=== PATIENT | female | born 1965 | race Caucasian/White ===

== ENCOUNTER 2020-07-11 16:24 | Emergency (ER) | payer OTHER, SELFPAY ==
[2020-07-11 20:01] LABS: Absolute Lymphocytes (CBC) 1.5 K/uL (0.7-4.9); Hematocrit 39.1 % (36.0-45.0); MPV 7.7 fL (7.6-11.3); RBC Red Blood Cell Count 4.51 M/uL (3.86-4.86)
[2020-07-11 20:19] LABS: Bilirubin Total 0.3 mg/dL (0.2-1.0); Potassium 3.6 mmol/L (3.5-5.1); Protein, Total 7.9 g/dL (6.4-8.2)
--- NOTE | 2020-07-11 20:45 | ER ---
Nurse's Notes [facility] Name: Ana Luisa Rojas Age: 54 yrs Sex: Female : 1965 Arrival Date: 07/11/2020 Time: 16:27 Bed 25 Private MD: Diagnosis: Cellulitis of left lower limb Presentation: 07/11 16:44 Chief complaint: Left lower leg swelling and redness x 5 days. Coronavirus screen: At this time, the client does not indicate any symptoms associated with coronavirus-19. Ebola Screen: No symptoms or risks identified at this time. Initial Sepsis Screen: Does the patient meet any 2 criteria? HR > 90 bpm. No. Patient's initial sepsis screen is negative. Does the patient have a suspected source of infection? No. Patient's initial sepsis screen is negative. Risk Assessment: Do you want to hurt yourself or someone else? Patient reports no desire to harm self or others. Onset of symptoms was July 06, 2020. 16:44 Method Of Arrival: Ambulatory 16:44 Acuity: BRODY 3 hb Triage Assessment: 21:09 General: Appears. ll1 21:09 General: Behavior is calm, cooperative, appropriate for age. 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 - Social history:: Smoking status: Patient reports the use of cigarette tobacco products, smokes two packs cigarettes per day. Screenin:00 Abuse screen: Denies threats or abuse. Nutritional screening: No deficits noted. ll1 Tuberculosis screening: No symptoms or risk factors identified. Fall Risk Gait- Weak (10 pts.). Total Ochoa Fall Scale indicates No Risk (0-24 pts). Assessment: 17:46 Reassessment: Pt updated on delay in being seen by a provider. Pt does not appear to be dm5 upset at this time and states that she understands. 19:35 General: Appears in no apparent distress. Behavior is calm, cooperative. Pain: ll1 Complains of pain in LLE Quality of pain is described as aching, Is continuous. Derm: redness to skin to LLE. No drainage at this time. She states it "weeps" at times. No fever. Reports redness to skin of LLE. Musculoskeletal: Circulation, motion, and sensation intact. Capillary refill < 3 seconds, Range of motion: intact in all extremities, Tenderness present in LLE Reports pain in LLE. Injury Description: no known injury. 19:45 Reassessment: Lab at bedside. lp1 Vital Signs: 16:44 BP 149 / 95; Pulse 102; Resp 20; Temp 99.6(TE); Pulse Ox 96% on R/A; Pain 6/10; hb ED Course: 16:27 Patient arrived in ED. mr 16:44 Triage completed. hb 16:45 Arm band placed on. hb 19:35 Nadir Anne MD is Attending Physician. tw4 19:[address] Anne in triage. ll1 19:40 Cuauhtemoc Michael PA is PHCP. [facility] 19:56 Cecilia Loredo, RN is Primary Nurse. lp1 20:00 Patient has correct armband on for positive identification. Bed in low position. Call ll1 light in reach. Side rails up X 1. Cardiac monitoring not applicable on this patient. 20:51 Extremity Venous Uni Ltd US In Process Unspecified. EDMS 20:52 No provider procedures requiring assistance completed. Patient did not have IV access ll1 during this emergency room visit. 20:58 Ultrasound completed. Patient tolerated well. Notified ACCOUNT INFORMATION CLERK/CARLOS aj. sg3 Administered Medications: No medications were administered Outcome: 20:45 Discharge ordered by . [facility] 20:51 Patient left the ED. aj1 20:51 Discharged to home ambulatory. ll1 20:51 Condition: stable 20:51 Discharge instructions given to patient, Instructed on discharge instructions, follow up and referral plans. medication usage, Demonstrated understanding of instructions, follow-up care, medications, Prescriptions given X 2. Signatures: Dispatcher [employer] EDMS Steffany Conrad RN RN aj1 Patricia Gaspar RN BRENT dm5 Cuauhtemoc Michael PA PA [facility] Sarah Hollis mr Cecilia Loredo, BRENT RN lp1 Shirin Hanson RN RN Ana Paula Hewitt sg3 Nadir Anne MD MD 4 Ophelia Solomon RN RN 1
--- NOTE | 2020-07-11 20:45 | EDPHYS ---
Physician Documentation [facility] Name: Ana Luisa Rojas Age: 54 yrs Sex: Female : 1965 Arrival Date: 07/11/2020 Time: 16:27 Bed 25 Private MD: ED Physician Nadir Anne HPI: 07/11 20:39 This 54 yrs old Female presents to ER via Ambulatory with complaints of Leg jmm Swelling. 20:39 The patient presents with pain, that is acute. Onset: The symptoms/episode jmm began/occurred gradually, 5 day(s) ago. Modifying factors: The symptoms are alleviated by nothing. the symptoms are aggravated by nothing. Associated signs and symptoms: Pertinent positives: swelling. This is a 54 year old female with no chronic medical conditions that presents to the ED with complaints of left lower leg pain beginning approx 5 days ago with swelling. Denies fever. Denies chest pain or shortness of breath. 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 - Social history:: Smoking status: Patient reports the use of cigarette tobacco products, smokes two packs cigarettes per day. ROS: 20:39 Constitutional: Negative for fever, chills, and weight loss, Cardiovascular: Negative jmm for chest pain, palpitations, and edema, Respiratory: Negative for shortness of breath, cough, wheezing, and pleuritic chest pain. 20:39 MS/extremity: Positive for swelling. 20:39 All other systems are negative. Exam: 20:39 Constitutional: This is a well developed, well nourished patient who is awake, alert, jmm and in no acute distress. Head/Face: atraumatic. Eyes: EOMI, no conjunctival erythema appreciated ENT: Moist Mucus Membranes Neck: Trachea midline, Supple Chest/axilla: Normal chest wall appearance and motion. Cardiovascular: Regular rate and rhythm. No edema appreciated Respiratory: Normal respirations, no respiratory distress appreciated Abdomen/GI: Non distended, soft Back: Normal ROM 20:39 Musculoskeletal/extremity: edema noted to the left lower leg, full dorsalis pulse, compartments are soft, NVI. 20:39 Skin: erythema noted to the left lower leg, mildly ttp. 20:39 Neuro: Orientation: is normal, Mentation: is normal, Memory: is normal. 20:39 Psych: Behavior/mood is pleasant, cooperative. Vital Signs: 16:44 BP 149 / 95; Pulse 102; Resp 20; Temp 99.6(TE); Pulse Ox 96% on R/A; Pain 6/10; hb MDM: 19:47 Patient medically screened. [facility] 20:43 Data reviewed: vital signs, nurses notes. Counseling: I had a detailed discussion with maki the patient and/or guardian regarding: the historical points, exam findings, and any diagnostic results supporting the discharge/admit diagnosis, lab results, radiology results, the need for outpatient follow up, to return to the emergency department if symptoms worsen or persist or if there are any questions or concerns that arise at home. ED course: Patient is alert and non toxic in appearance in the ED. US is negative. Labs unremarkable. Differential would include cellulitis, lymphadema. Patient is prescribed oral antibiotics and otherwise given strict return precautions. Patient understood and agrees with the plan of care. . 07/11 19:38 Order name: CBC with Diff; Complete Time: 20:18 tw4 07/11 19:38 Order name: CMP; Complete Time: 20:20 tw4 07/11 19:38 Order name: Extremity Venous Uni Ltd tw4 Administered Medications: No medications were administered Disposition: 07/12 07:02 Co-signature as Attending Physician, Nadir Anne MD I agree with the assessment and tw4 plan of care. Disposition: 07/11/20 20:45 Discharged to Home. Impression: Cellulitis of left lower limb. - Condition is Stable. - Discharge Instructions: Cellulitis, Adult. - Prescriptions for Augmentin 875- 125 mg Oral Tablet - take 1 tablet by ORAL route every 12 hours for 10 days; 20 tablet. Bactrim DS 800- 160 mg Oral Tablet - take 1 tablet by ORAL route every 12 hours for 10 days; 20 tablet. - Medication Reconciliation Form, Thank You Letter, Antibiotic Education, Prescription Opioid Use form. - Follow up: Private Physician; When: 2 - 3 days; Reason: Recheck today's complaints, Continuance of care, Re-evaluation by your physician. Signatures: Dispatcher [facility] EDSteffany Veronica RN RN aj1 Cuauhtemoc Michael PA PA jmm Baxter, Heather, RN RN Nadir Anne MD MD tw4 Corrections: (The following items were deleted from the chart) 07/11 20:51 20:45 07/11/2020 20:45 Discharged to Home. Impression: Cellulitis of left lower limb. aj1 Condition is Stable. Forms are Medication Reconciliation Form, Thank You Letter, Antibiotic Education, Prescription Opioid Use. Follow up: Private Physician; When: 2 - 3 days; Reason: Recheck today's complaints, Continuance of care, Re-evaluation by your physician. maki
[2020-07-11 21:18] VITALS: BP 149/95; TEMP 99.6; O2SAT 96
--- NOTE | 2020-07-11 21:35 | RAD REPORT ---
EXAM DESCRIPTION: US - Extremity Venous Uni Ltd - 07/11/2020 8:51 pm CLINICAL HISTORY: Pain;Swelling Leg swelling and edema. COMPARISON: No comparisons FINDINGS: Left lower extremity venous system was interrogated with Doppler technique. Normal flow, c ompressibility and augmentation was noted. There is no DVT present. IMPRESSION: No evidence of left lower extremity deep venous thrombosis.
== END 2020-07-11 20:51 | disposition home or self-care (01) ==
LOC: ER 16:24
DX: L03.116 Cellulitis of left lower limb (principal); F17.210 Nicotine dependence, cigarettes, uncomplicated; Z88.5 Allergy status to narcotic agent
CPT/HCPCS: 36415; 80053; 85025; 93971; 99283

== ENCOUNTER 2022-08-24 08:48 | Day surgery (SDC) | payer OTHER ==
[2022-08-18 12:58] LABS: Absolute Lymphocytes (CBC) 1.6 K/uL (0.7-4.9); Hematocrit 42.1 % (36.0-45.0); Lymphocytes % 19.2 % (15.3-44.8); MCV 84.2 fL (80-100); MPV 7.9 fL (7.6-11.3)
--- NOTE | 2022-08-18 12:58 | RAD REPORT ---
EXAM DESCRIPTION: RAD - Chest Single View - 08/18/2022 12:46 pm CLINICAL HISTORY: PRE-OP Chest pain. COMPARISON: CHEST SINGLE VIEW dated 09/01/2013; CHEST PA AND LAT 2 VIEW dated 06/16/2009; CHEST SING LE VIEW dated 06/16/2009; CHEST SINGLE VIEW dated 06/11/2009 FINDINGS: Portable technique limits examination quality. Mild to moderate bilateral pulmonary opacities which may represent pulmonary edema. The heart is mild ly enlarged in size. No displaced fractures. IMPRESSION: Mild CHF.
[2022-08-18 13:00] LABS: Protime INR 1.07
[2022-08-18 13:41] LABS: Albumin 3.1 g/dL (3.4-5.0); Bilirubin Total 0.2 mg/dL (0.2-1.0); Potassium 3.7 mmol/L (3.5-5.1); Protein, Total 8.3 g/dL (6.4-8.2)
--- NOTE | 2022-08-22 15:21 | EKG ---
Test Date: 2022-08-18 Test Time: 13:12:41 Crystal Flat Grinder: PAM MEASUREMENT RESULTS: Intervals: Rate: 70 OK: 168 QRSD: 110 QT: 390 QTc: 421 Cresco: P: 53 OK: 168 QRS: -1 T: 34 INTERPRETIVE STATEMENTS: Normal sinus rhythm Incomplete right bundle branch block Borderline ECG No previous ECG available for comparison Electronically Signed On 08-22-22 15:17:14 SUPERVISOR STERILE PROCESSING by Allan Patel
[~2022-08-24 08:48] MED LIST: CEFTRIAXONE 1,000 MG in NA CHLORIDE 0.9% 50 ML IVPB ONE
[2022-08-24] MEDS ORDERED: CEFTRIAXONE 1000 MG/VIAL ONE (09:16)
[2022-08-24] MEDS ORDERED: NA CHLORIDE 0.9% 1,000 ML ONE (09:16)
[2022-08-24] MEDS ORDERED: NA CHLORIDE 0.9% 50 ML IV ONE (09:22)
[2022-08-24] MEDS ORDERED: GEMCITABINE HCL 26.3 ML IVPB ONE (09:45)
[2022-08-24] MEDS ORDERED: propofoL 200 MG/20 ML VIAL IV ONE (11:48)
[2022-08-24] MEDS ORDERED: FENTANYL CITR 100 MCG/2 ML ONE (11:48)
[2022-08-24] MEDS ORDERED: MIDAZOLAM HCL 2 MG/2 ML INJ ONE (11:48)
[2022-08-24] MEDS ORDERED: dexAMETHasone 10 MG/ML VIAL ONE (11:49)
[2022-08-24] MEDS ORDERED: LIDOCAINE 1% MPF 5 ML VIAL ONE (11:49)
[2022-08-24] MEDS ORDERED: ONDANSETRON 4 MG/2 ML VIAL ONE (11:49)
[2022-08-24] MEDS ORDERED: ROCURONIUM 50 MG/5 ML VIAL IV ONE (11:49)
[2022-08-24] MEDS ORDERED: OPIUM/BELLADONNA SUPPOS (30-16.2 MG) PR ONE (12:46)
[2022-08-24] MEDS ORDERED: EPHEDRINE SULF 50 MG/ML VIAL ONE (12:47)
[2022-08-24] MEDS ORDERED: SUGAMMADEX SODIUM 200 MG/2 ML VIAL IV ONE (12:59)
[2022-08-24] MEDS ORDERED: CODEINE 30MG/APAP 300MG TAB PO PRN (13:27)
[2022-08-24] MEDS ORDERED: NA CHLORIDE 0.9% 0 ML ONE (14:16)
--- NOTE | 2022-08-24 14:19 | OP ---
Surgeon: LEI JACKMAN Preoperative Diagnosis: Multifocal urothelial carcinoma of the bladder. Postoperative Diagnoses: 1.Multifocal urothelial carcinoma of the bladder. 2.Dominant tumor approximately 3 cm of left lateral wall posteriorly. Principal Procedures: 1.Transurethral resection of the bladder tumor. 2.Instillation of intravesical gemcitabine 2 g and 50 cc normal saline. Indication For Procedure: Ms. Rojas is a 57-year-old woman with a history of DVT, on Xarelto as well as asthma/COPD, who presented with gross hematuria associated with a bladder mass suspected on CT. She underwent cystoscopy 08/10/2022 revealing multifocal urothelial malignancy in the region of the b ladder neck with a large focus in the right lateral posterior wall underlying the gross hematuria. S he had undergone a CT scan with contrast at [place] that was not done with delayed phase imaging, but s aw no upper tract renal malignancy. She also had no lymphadenopathy or bone lesions noted on CT scan . Procedure In Detail: The patient was consented in the preoperative holding area before being transfe rred to the operative suite where general anesthesia was induced. She was given ceftriaxone 1 g IV a ntimicrobial prophylaxis and pneumo boots were provided for DVT prophylaxis. Of note, she was given Augmentin which she was started on yesterday given an asymptomatic UTI noted on preoperative urine cu lture evaluation. The patient was then transferred to the operative suite where general anesthesia w as induced and pneumo boots were provided for DVT prophylaxis. She was placed in the lithotomy posit ion, padded and secured to the table appropriately and her genitalia were prepped with Hibiclens befo re being draped in standard fashion. The case was begun using urethral sounds to dilate the meatus t o 30-Bahamian. Then, I passed a 26-Bahamian bipolar resectoscope with a visual obturator via the urethra into her bladder with ease. I decompressed her bladder fluid and urine before switching to a thin r esectoscope loop and identified the large tumor, which was approximately 3, maybe 4 cm, and papillary in appearance with a base that ended up being approximately 2 cm in diameter. I then began by resec ting the frondular growths of the tumor and using the Ellik to remove them throughout the resection u ntil I could get near the base of the tumor, which I was able to resect as a deeper base dissection o f the tumor. Once the majority of the tumor had been resected off the surface of the bladder, I then switched to cold cup biopsy forceps and took biopsies of the base of the tumor to ensure good muscul ar sampling. I also throughout the resection removed the smaller multifocal tumor seen at the bladde r neck both on the left at around the 4 o'clock position and on the right at the 9 o'clock position. The remainder of the bladder was otherwise free of mucosal lesion. In the end, after fulguration, t he bladder surface was completely hemostatic and all tumor tissue had been Ellik evacuated from withi n the bladder. With her bladder completely decompressed, I confirmed she was still hemostatic before filling her bladder and passing an 18-Bahamian catheter in. After bladder was decompressed, I then re trograde instilled 2 g of gemcitabine and 50 cc normal saline with ease. The catheter was clamped an d connected to a leg bag. Her genitalia were draped using blue towels and impermeable fluid drapery, and she was taken out of the lithotomy position. She was then awakened from general anesthesia, tra nsferred to a stretcher, before being transferred to the recovery room in good condition. Complications: None. Discharge Disposition: We will keep the chemotherapy for 60, targeting 90 minutes of therapy. Of no te, she was given B and O suppository at the end of the procedure. Her bladder will then be decompre ssed, the catheter may be removed. She will then be given a voiding trial, as long as she is able to void successfully and with ease, she will be discharged home without a catheter and should follow up in the Urology Clinic within 10-14 days to discuss the results of pathology and determine next steps . She will require upper tract urographic phase imaging, which may be done if she requires restaging TURBT by performing retrograde studies. If restaging TURBT is not indicated, she will get a CT urogr am performed. WR/MODL Voice ID: [id number] Report ID: [id number]
[2022-08-24] MEDS ORDERED: NA CHLORIDE 0.9% 500 ML ONE (14:20)
[2022-08-24 15:16] VITALS: BP 111/50; TEMP 98.1; O2SAT 96
== END 2022-08-24 16:12 | disposition home or self-care (01) ==
LOC: OR 08:48
PROVIDERS: ATTEND Urology
PROC: 3E0K705 Introduction of Other Antineoplastic into Genitourinary Tract, Via Natural or Artificial Opening (ICD-10-PCS; 2022-08-24)
PROC: 0TBB8ZX Excision of Bladder, Via Natural or Artificial Opening Endoscopic, Diagnostic (ICD-10-PCS; principal; 2022-08-24 10:30)
DX: D09.0 Carcinoma in situ of bladder (principal); J45.909 Unspecified asthma, uncomplicated; J44.9 Chronic obstructive pulmonary disease, unspecified; Z86.718 Personal history of other venous thrombosis and embolism; Z79.01 Long term (current) use of anticoagulants
CPT/HCPCS: 93005; 87088; 85025; 87086; 36415; 85610; 82947 ×2; 88305; 88307; 87077; 87186; 80053; 71045; 52235; 51720; J2704; J2001; J2250; J3010; J1100; J9201; J7040; J7030; J2405

== ENCOUNTER 2022-09-07 06:04 | Emergency (ER) | payer OTHER ==
[2022-09-07 06:49] LABS: Absolute Lymphocytes (CBC) 1.4 K/uL (0.7-4.9); Hematocrit 41.3 % (36.0-45.0); Lymphocytes % 18.7 % (15.3-44.8); MPV 7.8 fL (7.6-11.3); RBC Red Blood Cell Count 4.91 M/uL (3.86-4.86)
[2022-09-07 07:08] LABS: Bilirubin Total 0.3 mg/dL (0.2-1.0); Potassium 3.7 mmol/L (3.5-5.1); Protein, Total 8.1 g/dL (6.4-8.2)
[2022-09-07 07:24] LABS: Urine Bacteria None Seen /HPF (<20); Urine RBC >50 /HPF (None Seen)
--- NOTE | 2022-09-07 08:04 | RAD REPORT ---
EXAM DESCRIPTION: CTAbdomen Pelvis W Contrast - 09/07/2022 7:36 am CLINICAL HISTORY: Post op bleeding COMPARISON: No comparisons TECHNIQUE: CT of the abdomen and pelvis was performed with IV contrast. All CT scans are performed using dose optimization technique as appropriate and may include automated exposure control or mA/KV adjustment according to patient size. FINDINGS: Lower chest: No acute abnormality. Liver: Hepatic steatosis. Too small to characterize liver lesions which are likely benign. Biliary: No biliary ductal dilatation. Stomach: No significant focal abnormality. Duodenum: No significant focal abnormality. Pancreas: No significant abnormality. Spleen: No significant abnormality. Adrenal: No suspicious lesions. Kidney/ureter: No hydronephrosis. No renal calculi. Left renal cyst. Retroperitoneum: No retroperitoneal adenopathy. Vascular: No aneurysm. Bowel: No significant focal abnormality. Peritoneum: No ascites or free air. Bladder: Dependent hyperdensity in the bladder likely hemorrhage. Reproductive: No adnexal masses. Hysterectomy. Bones: No acute fracture. Other: n/a IMPRESSION: Dependent hypoattenuation in the lumen of the bladder likely reflecting small volume of hemorrhage. No evidence of bladder leak. No hydronephrosis.
--- NOTE | 2022-09-07 08:07 | RAD REPORT ---
EXAM DESCRIPTION: US - Renal Ultrasound-Complete - 09/07/2022 7:55 am CLINICAL HISTORY: hematuria s/p surgery COMPARISON: No comparisons FINDINGS: Both kidneys are normal in size, shape and echotexture. The right kidney measures 11 cm. No hydronephrosis, focal mass or perinephric fluid. The left kidney measures 12.1 cm. No hydronephrosis, focal mass or perinephric fluid. IMPRESSION: Unremarkable renal sonogram. No hydronephrosis.
--- NOTE | 2022-09-07 08:07 | RAD REPORT ---
EXAM DESCRIPTION: US - Urinary Bladder - 09/07/2022 7:55 am CLINICAL HISTORY: HEMATURIA COMPARISON: No comparisons FINDINGS: Ultrasound of the bladder was obtained. Layering echogenic contents present within the bladder lumen. No flow identified. At the patient's si te of pain in the left lower quadrant, no focal abnormality identified. IMPRESSION: Findings likely representing layering hemorrhage within the bladder lumen. No sonographi c abnormality identified at the patient's site of pain in the left lower quadrant.
--- NOTE | 2022-09-07 08:37 | ER ---
Nurse's Notes [facility] Name: Ana Luisa Rojas Age: 57 yrs Sex: Female : 1965 Arrival Date: 09/07/2022 Time: 06:07 Bed 8 Private MD: Diagnosis: Gross hematuria Presentation: 09/07 06:12 Chief complaint: Patient states: "I had surgery on the here by Dr. Castillo for tw5 bladder cancer. Everything has been great until this morning when I woke up covered in blood.". Coronavirus screen: Vaccine status: Patient reports being unvaccinated. Risk Assessment: Do you want to hurt yourself or someone else? Patient reports no desire to harm self or others. Onset of symptoms was September 07, 2022. 06:12 Method Of Arrival: Ambulatory tw5 06:12 Acuity: BRODY 3 tw5 07:56 Ebola Screen: No symptoms or risks identified at this time. Initial Sepsis Screen: Does ph the patient meet any 2 criteria? No. Patient's initial sepsis screen is negative. Does the patient have a suspected source of infection? No. Patient's initial sepsis screen is negative. Triage Assessment: 06:15 General: Appears in no apparent distress. obese, Behavior is calm, cooperative, tw5 appropriate for age. Historical: - Allergies: 06:15 Codeine; tw5 - PMHx: 06:15 COPD; CHF; Diabetes mellitus; Anxiety; Depressive disorder; tw5 - PSHx: 06:15 Total abdominal hysterectomy; Ligation of fallopian tube; Appendectomy; tw5 - Immunization history:: Flu vaccine is not up to date. - Social history:: Smoking status: Patient reports the use of cigarette tobacco products, smokes two packs cigarettes per day. Screenin:39 [facility] ED Fall Risk Assessment (Adult) History of falling in the last 3 months, ld1 including since admission No falls in past 3 months (0 pts). Abuse screen: Denies threats or abuse. Denies injuries from another. Nutritional screening: No deficits noted. Tuberculosis screening: No symptoms or risk factors identified. Assessment: 07:39 General: Appears in no apparent distress. comfortable, Behavior is calm, cooperative, ld1 appropriate for age. Pain: Complains of pain in left lower quadrant Pain does not radiate. Neuro: Level of Consciousness is awake, alert, obeys commands, Oriented to person, place, time, situation. Cardiovascular: Capillary refill < 3 seconds Patient's skin is warm and dry. Respiratory: Airway is patent Respiratory effort is even, unlabored. GI: Abdomen is flat, non-distended. : No signs and/or symptoms were reported regarding the genitourinary system. EENT: No signs and/or symptoms were reported regarding the EENT system. Derm: No signs and/or symptoms reported regarding the dermatologic system. Musculoskeletal: No signs and/or symptoms reported regarding the musculoskeletal system. 07:55 Reassessment: Patient appears in no apparent distress at this time. Patient and/or ph family updated on plan of care and expected duration. Pain level reassessed. Patient is alert, oriented x 3, equal unlabored respirations, skin warm/dry/pink. Pt ambulated to restroom w/ steady gait. 08:24 Reassessment: Notified by burner technician that pt stated she was going outside to go smoke, aa5 unable to locate pt at this time, IV remains in place, [place] [employer] was notified and they will look for pt. . 08:26 Reassessment: Pt returned to ER at this time. [place] [employer] was notified pt returned aa5 to ER. . 08:33 Reassessment: Bladder scanner completed - 66ml left in bladder post void. ld1 08:44 Reassessment: Patient appears in no apparent distress at this time. Patient and/or ld1 family updated on plan of care and expected duration. Pain level reassessed. Patient is alert, oriented x 3, equal unlabored respirations, skin warm/dry/pink. Patient denies pain at this time. Vital Signs: 06:23 BP 120 / 84; Pulse 81; Resp 19; Temp 97.9; Pulse Ox 96% on R/A; Weight 124.74 kg; kd3 Height 5 ft. 6 in. (167.64 cm); 08:44 BP 118 / 83; Pulse 78; Resp 18; Pulse Ox 97% on R/A; Pain 0/10; ld1 06:23 Body Mass Index 44.39 (124.74 kg, 167.64 cm) kd3 ED Course: 06:07 Patient arrived in ED. ja2 06:14 Triage completed. tw5 06:16 Arm band placed on Patient placed in an exam room. tw5 06:22 Chavo, Traci, RN is Primary Nurse. kd3 06:47 CBC with Diff Sent. kd3 06:47 CMP Sent. kd3 06:47 Lipase Sent. kd3 06:47 Urine Microscopic Only Sent. kd3 06:48 Jaim[facility]-C [facility]. snw 06:48 Tony Singh DO is Attending Physician. snw 06:55 Type And Screen Sent. kd3 07:37 CT Abd/Pelvis - IV Contrast Only In Process Unspecified. EDMS 07:39 Patient has correct armband on for positive identification. Placed in gown. Bed in low ld1 position. Call light in reach. Side rails up X2. monitor technician on. Pulse ox on. NIBP on. Door closed. Noise minimized. Warm blanket given. 07:39 No provider procedures requiring assistance completed. ld1 07:57 Renal Ultrasound-Complete In Process Unspecified. EDMS 07:57 Urinary Bladder In Process Unspecified. EDMS 08:10 T\\T\\S collected, blood band applied to patient. jw7 08:34 Tyrone Castillo MD is Referral Physician. snw 08:45 IV discontinued, intact, bleeding controlled, No redness/swelling at site. ld1 Administered Medications: No medications were administered Medication: 07:56 VIS not applicable for this client. ph Outcome: 08:36 Discharge ordered by . snw 08:44 Discharged to home ambulatory, with family. ld1 08:44 Condition: stable 08:44 Discharge instructions given to patient, family, Instructed on discharge instructions, follow up and referral plans. Demonstrated understanding of instructions, follow-up care. 08:45 Patient left the ED. ld1 Signatures: Dispatcher [employer] EDMS Jaimie Rocha FNP-C CASE REPAIRER-Csnw Niurka Hernandez RN RN aa5 Orquidea Katz RN RN Afsaneh Umanzor, BRENT RN ld1 Gina Rubalcava Tiffany tw5 Traci Tony, RN RN kd3 Elisabeth Colby jw7 Corrections: (The following items were deleted from the chart) 06:42 06:23 BP 120 / 84; Pulse 19bpm; Resp 81bpm; Pulse Ox 96% RA; Temp 97.9F; 124.74 kg; kd3 Height 5 ft. 6 in.; BMI: 44.3; kd3 08:28 08:26 Reassessment: Pt returned to ER at this time. . aa5 aa5
--- NOTE | 2022-09-07 08:37 | EDPHYS ---
Physician Documentation [facility] Name: Ana Luisa Rojas Age: 57 yrs Sex: Female : 1965 Arrival Date: 09/07/2022 Time: 06:07 Bed 8 Private MD: ED Physician Tony Singh HPI: 09/07 07:16 This 57 yrs old Female presents to ER via Ambulatory with complaints of Post Surgical snw Bleeding. 07:16 The patient presents with urinary symptoms, hematuria. Onset: The symptoms/episode snw began/occurred suddenly, this morning. Modifying factors: The symptoms are alleviated by nothing. Associated signs and symptoms: Pertinent positives: hematuria. Severity of symptoms: At their worst the symptoms were mild. The patient has not experienced similar symptoms in the past. Pt had cystoscopy and removal of bladder mass about two weeks ago. No complications or complaints until this am. Pt awoke saturated with blood. Historical: - Allergies: 06:15 Codeine; tw5 - PMHx: 06:15 COPD; CHF; Diabetes mellitus; Anxiety; Depressive disorder; tw5 - PSHx: 06:15 Total abdominal hysterectomy; Ligation of fallopian tube; Appendectomy; tw5 - Immunization history:: Flu vaccine is not up to date. - Social history:: Smoking status: Patient reports the use of cigarette tobacco products, smokes two packs cigarettes per day. ROS: 07:15 Constitutional: Negative for fever, chills, and weight loss, Eyes: Negative for injury, snw pain, redness, and discharge, ENT: Negative for injury, pain, and discharge, Neck: Negative for injury, pain, and swelling, Cardiovascular: Negative for chest pain, palpitations, and edema, Respiratory: Negative for shortness of breath, cough, wheezing, and pleuritic chest pain, Abdomen/GI: Negative for abdominal pain, nausea, vomiting, diarrhea, and constipation, Back: Negative for injury and pain, : Negative for injury, bleeding, discharge, and swelling, MS/Extremity: Negative for injury and deformity, Skin: Negative for injury, rash, and discoloration, Neuro: Negative for headache, weakness, numbness, tingling, and seizure, Psych: Negative for depression, anxiety, suicide ideation, homicidal ideation, and hallucinations. Exam: 07:15 Constitutional: This is a well developed, well nourished patient who is awake, alert, snw and in no acute distress. Head/Face: Normocephalic, atraumatic. Eyes: Pupils equal round and reactive to light, extra-ocular motions intact. Lids and lashes normal. Conjunctiva and sclera are non-icteric and not injected. Cornea within normal limits. Periorbital areas with no swelling, redness, or edema. ENT: Nares patent. No nasal discharge, no septal abnormalities noted. Tympanic membranes are normal and external auditory canals are clear. Oropharynx with no redness, swelling, or masses, exudates, or evidence of obstruction, uvula midline. Mucous membranes moist. Neck: Trachea midline, no thyromegaly or masses palpated, and no cervical lymphadenopathy. Supple, full range of motion without nuchal rigidity, or vertebral point tenderness. No Meningismus. Chest/axilla: Normal chest wall appearance and motion. Nontender with no deformity. No lesions are appreciated. Cardiovascular: Regular rate and rhythm with a normal S1 and S2. No gallops, murmurs, or rubs. Normal PMI, no JVD. No pulse deficits. Respiratory: Lungs have equal breath sounds bilaterally, clear to auscultation and percussion. No rales, rhonchi or wheezes noted. No increased work of breathing, no retractions or nasal flaring. 07:15 Back: No spinal tenderness. No costovertebral tenderness. Full range of motion. Skin: Warm, dry with normal turgor. Normal color with no rashes, no lesions, and no evidence of cellulitis. MS/ Extremity: Pulses equal, no cyanosis. Neurovascular intact. Full, normal range of motion. Neuro: Awake and alert, GCS 15, oriented to person, place, time, and situation. Cranial nerves II-XII grossly intact. Motor strength 5/5 in all extremities. Sensory grossly intact. Cerebellar exam normal. Normal gait. Psych: Awake, alert, with orientation to person, place and time. Behavior, mood, and affect are within normal limits. 07:15 Abdomen/GI: Inspection: abdomen appears normal, Bowel sounds: normal, Palpation: mild abdominal tenderness, in the left lower quadrant. Vital Signs: 06:23 BP 120 / 84; Pulse 81; Resp 19; Temp 97.9; Pulse Ox 96% on R/A; Weight 124.74 kg; kd3 Height 5 ft. 6 in. (167.64 cm); 08:44 BP 118 / 83; Pulse 78; Resp 18; Pulse Ox 97% on R/A; Pain 0/10; ld1 06:23 Body Mass Index 44.39 (124.74 kg, 167.64 cm) kd3 MDM: 06:51 Patient medically screened. snw 07:47 Differential diagnosis: Neoplasm urinary tract infection, hematoma/post-surgical snw bleeding. 08:14 Data reviewed: vital signs, nurses notes. Data interpreted: Pulse oximetry: on room air snw is 96 %. Interpretation: acceptable. Counseling: I had a detailed discussion with the patient and/or guardian regarding: the historical points, exam findings, and any diagnostic results supporting the discharge/admit diagnosis, the presence of at least one elevated blood pressure reading (>120/80) during this emergency department visit, lab results, radiology results. Physician consultation: Tyrone Castillo MD was called at 08:15, was contacted at 08:15, regarding patient's condition, outpatient follow-up, in 2-3 days, Dr. Castillo would like pt to f/u in office but would like post void residual scan to ensure adequate bladder emptying.. 08:33 ED course: post void residual 66ml. snw 08:37 ED course: Pt has appt with Dr. Castillo tomorrow. snw 09/07 06:27 Order name: CBC with Diff; Complete Time: 06:51 sp3 09/07 06:27 Order name: CMP; Complete Time: 07:15 sp3 09/07 06:27 Order name: Lipase; Complete Time: 07:15 sp3 09/07 06:27 Order name: Urine Microscopic Only; Complete Time: 07:26 sp3 09/07 06:27 Order name: CT Abd/Pelvis - IV Contrast Only; Complete Time: 08:07 sp3 09/07 06:27 Order name: IV Saline Lock; Complete Time: 06:38 sp3 09/07 06:27 Order name: Labs collected and sent; Complete Time: 06:47 sp3 09/07 06:27 Order name: Urine Dipstick-Ancillary (obtain specimen); Complete Time: 07:39 sp3 09/07 07:15 Order name: Labs - recollect needed: recollect type and screen year was not on label; bd Complete Time: 07:39 01/05 07:34 Order name: Renal Ultrasound-Complete; Complete Time: 08:10 EDMS 09/07 07:35 Order name: Urinary Bladder; Complete Time: 08:10 EDMS 09/07 08:17 Order name: Misc. Order: post void residual bladder scan; Complete Time: 08:32 snw Administered Medications: No medications were administered Disposition: 16:48 Co-signature as Attending Physician, Tony Singh DO I was immediately available on-site ms3 in the Emergency Department for consultation in the care of the patient. Disposition Summary: 09/07/22 08:36 Discharge Ordered Location: Home snw Condition: Stable snw Diagnosis - Gross hematuria snw Followup: snw - With: Emergency Department - When: As needed - Reason: Worsening of condition Followup: snw - With: Tyrone Castillo MD - When: 1 - 2 days - Reason: Recheck today's complaints, Continuance of care, Re-evaluation by your physician Discharge Instructions: - Discharge Summary Sheet snw - Hematuria, Adult snw Forms: - Medication Reconciliation Form snw - Thank You Letter snw - Antibiotic Education snw - Prescription Opioid Use snw Signatures: Dispatcher [employer] EDMS Sonia Tijerina Shelly, TEST ANALYST-C TEST ANALYST-Csnw Tony Singh DO DO ms3 Yun Heaton MD MD sp3 Loida Barreto tw5 Corrections: (The following items were deleted from the chart) 07:34 07:28 Pelvis Complete+US.RAD.BRZ ordered. EDMS EDMS
[2022-09-07 08:50] VITALS: TEMP 97.9
[2022-09-07 08:51] VITALS: BP 118/83; O2SAT 97
== END 2022-09-07 08:45 | disposition home or self-care (01) ==
LOC: ER 06:04
DX: R31.0 Gross hematuria (principal); Z98.890 Other specified postprocedural states; F17.210 Nicotine dependence, cigarettes, uncomplicated; Z88.5 Allergy status to narcotic agent; Z85.51 Personal history of malignant neoplasm of bladder
CPT/HCPCS: 85025; 36415; 86900; 86850; 86901; 81015; 83690; 80053; 74177; 76857; 76770; 99284; Q9967

== ENCOUNTER 2022-09-07 19:03 | Emergency (ER) | payer OTHER ==
[~2022-09-07 19:03] MED LIST changes: -CEFTRIAXONE 1,000 MG in NA CHLORIDE 0.9% 50 ML IVPB ONE; +NA CHLORIDE 0.9% 1,000 ML ONE
[2022-09-07] MEDS ORDERED: NA CHLORIDE 0.9% 1,000 ML ONE (20:03)
[2022-09-07 20:39] LABS: Protime INR 2.3
[2022-09-07 20:44] LABS: Potassium 3.7 mmol/L (3.5-5.1)
[2022-09-07 21:14] LABS: Absolute Lymphocytes (CBC) 1.6 K/uL (0.7-4.9); Hematocrit 37.4 % (36.0-45.0); MCV 84.3 fL (80-100); MPV 8.2 fL (7.6-11.3); RBC Red Blood Cell Count 4.44 M/uL (3.86-4.86)
[2022-09-07 22:54] LABS: Urine Bacteria Loaded /HPF (<20); Urine RBC >50 /HPF (None Seen)
[2022-09-07] MEDS ORDERED: CEFTRIAXONE 1000 MG/VIAL ONE (23:15)
--- NOTE | 2022-09-08 01:11 | ER ---
Nurse's Notes [facility] Name: Ana Luisa Rojas Age: 57 yrs Sex: Female : 1965 Arrival Date: 09/07/2022 Time: 19:13 Bed 13 Private MD: Diagnosis: Gross hematuria;Suprapubic pain;Bleeding from urethra Presentation: 09/07 19:17 Chief complaint: EMS states: "patient states that she had bladder cancer removal on em6 August 25, 2022 and today at 0400 she started bleeding bright red with clots. at 1600 she started having periumbilical and suprapubic pain. she's currently at a 3 pain. vitals have been stable. started a 20 G on the right AC and gave her 1000 mg of Tylenol IV.". Coronavirus screen: Client denies travel out of the [place] in the last 14 days. Ebola Screen: Patient negative for fever greater than or equal to 101.5 degrees Fahrenheit, and additional compatible Ebola Virus Disease symptoms. Initial Sepsis Screen: Does the patient meet any 2 criteria? No. Patient's initial sepsis screen is negative. Does the patient have a suspected source of infection? No. Patient's initial sepsis screen is negative. Risk Assessment: Do you want to hurt yourself or someone else? Patient reports no desire to harm self or others. Onset of symptoms was September 07, 2022. 19:17 Acuity: BRODY 3 em6 19:17 Method Of Arrival: EMS: [facility] em6 Historical: - Allergies: 19:23 Codeine; em6 - PMHx: 19:23 Anxiety; CHF; COPD; depressive disorder; diabetes mellitus; em6 - PSHx: 19:23 Appendectomy; Ligation of fallopian tube; Total abdominal hysterectomy; em6 - Immunization history:: Adult Immunizations up to date. - Social history:: Smoking status: Patient reports the use of cigarette tobacco products. Screenin:15 Abuse screen: Denies threats or abuse. Nutritional screening: No deficits noted. em6 Tuberculosis screening: No symptoms or risk factors identified. 19:23 [facility] ED Fall Risk Assessment (Adult) History of falling in the last 3 months, em6 including since admission No falls in past 3 months (0 pts) Confusion or Disorientation No (0 pts) Intoxicated or Sedated No (0 pts) Impaired Gait No (0 pts) Mobility Assist Device Used No (0 pt) Altered Elimination No (0 pt) Score/Fall Risk Level 0 - 2 = Low Risk Oriented to surroundings, Maintained a safe environment, Educated pt \\T\\ family on fall prevention, incl call for assistance when getting out of bed, Assessed \\T\\ reinforced patient's understanding of fall precautions, Provided non-skid footwear, Hourly rounding (assess needs \\T\\ fall precautionary measures) done, Used ambulatory aids as needed (educated on \\T\\ assisted with), Used gait belt as appropriate. Assessment: 19:15 General: Appears in no apparent distress. Behavior is cooperative. Pain: Complains of em6 pain in umbilical area and suprapubic area Pain does not radiate. Pain currently is 3 out of 10 on a pain scale. Quality of pain is described as pressure, sharp. Neuro: Level of Consciousness is awake, alert, obeys commands, Oriented to person, place, time, situation. Cardiovascular: Patient's skin is warm and dry. Respiratory: Airway is patent Respiratory effort is even, unlabored, Respiratory pattern is regular, symmetrical. GI: Abdomen is non-distended, Bowel sounds present X 4 quads. Abd is soft and non tender X 4 quads. : patient showed a picture of the bleeding. its bright red with clots Reports vaginal bleeding that is bright red. EENT: No signs and/or symptoms were reported regarding the EENT system. Derm: No signs and/or symptoms reported regarding the dermatologic system. Musculoskeletal: Circulation, motion, and sensation intact. Range of motion: intact in all extremities. 19:59 Reassessment: bladder scan 222 mL. em6 20:15 Reassessment: Patient appears in no apparent distress at this time. No changes from em6 previously documented assessment. Patient and/or family updated on plan of care and expected duration. Pain level reassessed. Patient is alert, oriented x 3, equal unlabored respirations, skin warm/dry/pink. 21:14 Reassessment: Patient appears in no apparent distress at this time. No changes from em6 previously documented assessment. Patient and/or family updated on plan of care and expected duration. Pain level reassessed. Patient is alert, oriented x 3, equal unlabored respirations, skin warm/dry/pink. 22:15 Reassessment: Patient appears in no apparent distress at this time. No changes from em6 previously documented assessment. Patient and/or family updated on plan of care and expected duration. Pain level reassessed. Patient is alert, oriented x 3, equal unlabored respirations, skin warm/dry/pink. 23:08 Reassessment: Patient is alert, oriented x 3, equal unlabored respirations, skin em6 warm/dry/pink. bladder irrigation performed. used 750 ml of NS. 450 ML of fluid return. 09/08 00:33 Reassessment: Patient appears in no apparent distress at this time. Patient is alert, aa9 oriented x 3, equal unlabored respirations, skin warm/dry/pink. Pain: Denies pain. Respiratory: Airway is patent Respiratory effort is even, unlabored. : Santiago in place to gravity drainage Urine is blood tinged. 01:30 Reassessment: Patient appears in no apparent distress at this time. DC Santiago Cath, aa9 collection bag contains 600 ml of bloody urine, pt tolerated well, IV DC'D, pt denies concerns. Vital Signs: 09/07 19:17 BP 96 / 83; Pulse 71; Resp 16; Temp 97.8; Pulse Ox 99% on R/A; Weight 124.74 kg; Height em6 5 ft. 6 in. (167.64 cm); Pain 3/10; 20:54 BP 111 / 63; Pulse 73; Resp 16; Pulse Ox 95% ; em6 22:43 BP 102 / 60; Pulse 79; Resp 16; Pulse Ox 97% on R/A; em6 23:30 BP 100 / 68; Pulse 70; Resp 16; Pulse Ox 92% on R/A; em6 09/08 00:35 Pulse 74; Resp 19 S; Pulse Ox 99% ; aa9 09/07 19:17 Body Mass Index 44.39 (124.74 kg, 167.64 cm) em6 ED Course: 09/07 19:13 Patient arrived in ED. em6 19:13 Lu Coon MD is Attending Physician. sd2 19:15 Maintain EMS IV. Dressing intact. Good blood return noted. Site clean \\T\\ dry. Gauge \\T\\ em 6 site: 20 rac. 19:23 Triage completed. em6 19:23 Arm band placed on. em6 19:23 Bed in low position. Call light in reach. Side rails up X 1. Pulse ox on. NIBP on. em6 Sitter at bedside. Warm blanket given. 19:35 Jolanta Leyva, RN is Primary Nurse. em6 19:59 Bladder scan completed. 255 mL. em6 20:24 Ptt, Activated Sent. em6 20:24 PT-INR Sent. em6 20:24 BMP Sent. em6 20:24 CBC with Diff Sent. em6 22:30 Santiago cath inserted, using sterile technique, 16 Fr., by ms, balloon inflated, to em6 gravity drainage, urine specimen collected. 22:37 Urine Microscopic Only Sent. em6 22:37 Urine Culture Sent. em6 09/08 00:30 Abdomen In Process Unspecified. EDMS 01:10 Tyrone Castillo MD is Referral Physician. sd2 01:30 No provider procedures requiring assistance completed. IV discontinued, intact, aa9 bleeding controlled, No redness/swelling at site. Pressure dressing applied. Administered Medications: 09/07 20:24 Drug: NS 0.9% 1000 ml Route: IV; Rate: 1 bolus; Site: right antecubital; em6 22:37 Follow up: Response: No adverse reaction; IV Status: Completed infusion; IV Intake: em6 1000ml 23:25 Drug: Rocephin (cefTRIAXone) 1 grams Route: IV; Rate: bolus; Site: right antecubital; em6 09/08 00:06 Follow up: Response: No adverse reaction; IV Status: Completed infusion; IV Intake: 40pdpp8 Medication: 09/07 23:26 VIS not applicable for this client. em6 Intake: 22:37 IV: 1000ml; Total: 1000ml. em6 09/08 00:06 IV: 10ml; Total: 1010ml. em6 Outcome: 01:11 Discharge ordered by . sd2 01:30 Discharged to home ambulatory, with family. aa9 01:30 Condition: stable 01:30 Discharge instructions given to patient, family, Instructed on discharge instructions, follow up and referral plans. Demonstrated understanding of instructions, follow-up care. 01:31 Patient left the ED. aa9 Signatures: [facility] Lu Coon MD MD sd2 Nohemy Arcos, RN RN aa9 Jolanta Leyva, RN RN em6 Corrections: (The following items were deleted from the chart) 09/07 21:15 21:14 Bladder scan completed. 255 mL em6 em6 23:26 23:08 Reassessment: bladder irrigation performed. used 750 ml of NS. 450 ML of fluid em6 return. em6
--- NOTE | 2022-09-08 01:11 | EDPHYS ---
Physician Documentation [facility] Name: Ana Luisa Rojas Age: 57 yrs Sex: Female : 1965 Arrival Date: 09/07/2022 Time: 19:13 Bed 13 Private MD: ED Physician Lu Coon HPI: 09/07 19:44 This 57 yrs old Female presents to ER via EMS with complaints of Vaginal Bleeding. sd2 19:44 57-year-old female presents via EMS with chief complaint of eating. She reports she had sd2 a bladder cancer removal performed on August [address] Castillo. She has not had any complications until this morning around 4 AM when she woke up with bleeding. She reports she cannot tell if it is coming from her urethra or her vaginal area. She was seen at our facility earlier this morning with a negative work-up and CT scan at that time. Dr. Castillo was consulted and a postvoid residual was performed which was normal and she was sent home with a plan for follow-up in his clinic tomorrow. She reports that starting around 4 PM this afternoon, she began to have suprapubic abdominal pain which was unable to be controlled. She reports associated urgency and hesitancy and inability to fully void.. Historical: - Allergies: 19:23 Codeine; em6 - PMHx: 19:23 Anxiety; CHF; COPD; depressive disorder; diabetes mellitus; em6 - PSHx: 19:23 Appendectomy; Ligation of fallopian tube; Total abdominal hysterectomy; em6 - Immunization history:: Adult Immunizations up to date. - Social history:: Smoking status: Patient reports the use of cigarette tobacco products. ROS: 19:44 Positive for urinary symptoms, hematuria, difficulty urinating, Negative for injury sd2 or acute deformity. 19:44 Constitutional: Negative for fever, chills, and weight loss, Eyes: Negative for injury, pain, redness, and discharge, Cardiovascular: Negative for chest pain, palpitations, and edema, Respiratory: Negative for shortness of breath, cough, wheezing. 19:44 MS/Extremity: Negative for injury and deformity, Skin: Negative for injury, rash, and discoloration, Neuro: Negative for headache, numbness and tingling. 19:44 Abdomen/GI: Positive for abdominal pain, Negative for nausea, vomiting, and diarrhea. Exam: 19:44 Constitutional: This is a well developed, well nourished patient who is awake, alert, sd2 and in no acute distress. Head/Face: Normocephalic, atraumatic. Eyes: EOMI, normal conjunctiva bilaterally Chest/axilla: Normal chest wall appearance and motion. Nontender with no deformity. Cardiovascular: Regular rate and rhythm with a normal S1 and S2. No gallops, murmurs, or rubs. 2+ distal pulses. Respiratory: Lungs have equal breath sounds bilaterally, clear to auscultation and percussion. No rales, rhonchi or wheezes noted. No increased work of breathing, no retractions or nasal flaring. Abdomen/GI: Soft, suprapubic distention and mild TTP, no rebound or guarding Skin: Warm, dry with normal turgor. Normal color with no rashes, no lesions, and no evidence of cellulitis. MS/ Extremity: Pulses equal, no cyanosis. Neurovascular intact. Full, normal range of motion. Ambulatory without difficulty. Psych: Awake, alert, with orientation to person, place and time. Behavior, mood, and affect are within normal limits. Vital Signs: 19:17 BP 96 / 83; Pulse 71; Resp 16; Temp 97.8; Pulse Ox 99% on R/A; Weight 124.74 kg; Height em6 5 ft. 6 in. (167.64 cm); Pain 3/10; 20:54 BP 111 / 63; Pulse 73; Resp 16; Pulse Ox 95% ; em6 22:43 BP 102 / 60; Pulse 79; Resp 16; Pulse Ox 97% on R/A; em6 23:30 BP 100 / 68; Pulse 70; Resp 16; Pulse Ox 92% on R/A; em6 09/08 00:35 Pulse 74; Resp 19 S; Pulse Ox 99% ; aa9 09/07 19:17 Body Mass Index 44.39 (124.74 kg, 167.64 cm) em6 MDM: 09/07 19:13 Patient medically screened. sd2 19:44 Differential diagnosis: anemia, urinary retention, postoperative bleeding among others. sd2 Data reviewed: vital signs, nurses notes. 09/08 01:07 Data reviewed: lab test result(s), radiologic studies. Counseling: I had a detailed sd2 discussion with the patient and/or guardian regarding: the historical points, exam findings, and any diagnostic results supporting the discharge/admit diagnosis, lab results, radiology results, the need for outpatient follow up, to return to the emergency department if symptoms worsen or persist or if there are any questions or concerns that arise at home. Medical screen evaluation completed. [facility] emergency medical condition absent. Physician consultation: Tyrone Castillo MD regarding consult, patient's condition, Discussed patient's clinical presentation with Dr. Castillo who recommends irrigation of the patient's catheter and CT cystogram and urogram to be performed to rule out bladder perforation and upper tract filling defects. Radiology made aware and imaging performed with no acute findings. Patient is feeling improved at time of repeat evaluation but is requesting Santiago catheter be removed. We discussed risk of obstruction and continued bleeding requiring replacement of catheter and patient states she will return if she runs into these issues but would still like the catheter removed. Has a follow up appointment with Dr. Castillo at 1145 today. Verbalizes understanding of discharge plan and strict return precautions at this time.. 09/07 19:44 Order name: CBC with Diff; Complete Time: 21:16 sd2 09/07 19:44 Order name: BMP; Complete Time: 21:16 sd2 09/07 19:44 Order name: Urine Microscopic Only; Complete Time: 23:04 sd2 09/07 19:44 Order name: Urine Culture 2 09/07 19:44 Order name: PT-INR; Complete Time: 21:16 sd2 09/07 19:44 Order name: Ptt, Activated; Complete Time: 21:16 sd2 09/07 19:44 Order name: Bladder Scanner; Complete Time: 19:59 sd2 09/07 21:17 Order name: Santiago; Complete Time: 22:37 sd2 09/08 00:02 Order name: Abdomen EDMS Administered Medications: 09/07 20:24 Drug: NS 0.9% 1000 ml Route: IV; Rate: 1 bolus; Site: right antecubital; em6 22:37 Follow up: Response: No adverse reaction; IV Status: Completed infusion; IV Intake: em6 1000ml 23:25 Drug: Rocephin (cefTRIAXone) 1 grams Route: IV; Rate: bolus; Site: right antecubital; em6 09/08 00:06 Follow up: Response: No adverse reaction; IV Status: Completed infusion; IV Intake: [id number] Disposition Summary: 09/08/22 01:11 Discharge Ordered Location: Home sd2 Problem: an ongoing problem sd2 Symptoms: have improved sd2 Condition: Stable sd2 Diagnosis - Gross hematuria sd2 - Suprapubic pain sd2 - Bleeding from urethra sd2 Followup: sd2 - With: Tyrone Castillo MD - When: Today - Reason: Recheck today's complaints, Continuance of care, Re-evaluation by your physician Discharge Instructions: - Discharge Summary Sheet sd2 - Hematuria, Adult sd2 Forms: - Medication Reconciliation Form sd2 - Thank You Letter sd2 - Antibiotic Education sd2 - Prescription Opioid Use sd2 Signatures: Dispatcher [employer] Lu Hebert MD MD sd2 Jolanta Leyva RN RN em6
[2022-09-08 01:36] VITALS: TEMP 97.8
[2022-09-08 01:39] VITALS: BP 100/68
[2022-09-08 01:40] VITALS: O2SAT 99
--- NOTE | 2022-09-09 11:51 | RAD REPORT ---
EXAM DESCRIPTION: CT - Abdomen Pelvis W/Wo Contrast - 09/08/2022 1:25 am CLINICAL HISTORY: The patient is 57 years old and is Female; pelvic pain, r/o bladder perforation. [facility] MAIN TECHNIQUE: Axial computed tomography images of the abdomen and pelvis without and with intravenous c ontrast. Sagittal and coronal reformatted images were created and reviewed. This CT exam was perf ormed using one or more of the following dose reduction techniques: automated exposure control, adj ustment of the mA and/or kV according to patient size, and/or use of iterative reconstruction techniq ue. COMPARISON: 09/07/2022 CT abdomen pelvis with contrast FINDINGS: LUNG BASES: Unremarkable. No mass. No consolidation. ABDOMEN: LIVER: Hepatic steatosis. Too small to characterize subcentimeter hypoattenuating focus in the left hepatic lobe (axia l image 15). In the absence of known or suspected metastatic disease, no dedicated imaging follow-up recommended for this particular finding. GALLBLADDER AND BILE DUCTS: Unremarkable. No calcified stones. No ductal dilation. PANCREAS: Unremarkable. No mass. No ductal dilation. SPLEEN: Unremarkable. No splenomegaly. ADRENALS: Unremarkable. No mass. KIDNEYS AND URETERS: Simple left inferior pole renal cyst. No dedicated imaging follow-up recommen ded for this particular finding.. Small volume iodinated contrast noted within the bilateral renal collecting system. No evide nce of hydronephrosis or obstructive intrarenal or intraureteral stones. STOMACH AND BOWEL: Unremarkable. No obstruction. No mucosal thickening. PELVIS: APPENDIX: No findings to suggest acute appendicitis. BLADDER: Indwelling Santiago catheter and bulb demonstrated within the urinary bladder lumen, which c ontains presumed urine, and injected iodinated contrast material and small volume intraluminal gas. N o evidence of contrast extravasation or kyle pneumoperitoneum to suggest urinary bladder perforation . Metallic artifacts noted in the bilateral hemipelvis superior to the level of the dome of th e urinary bladder, presumably reflecting small surgical clips. No stones. REPRODUCTIVE: Presumed hysterectomy. ABDOMEN and PELVIS: INTRAPERITONEAL SPACE: See above. BONES/JOINTS: See above. SOFT TISSUES: Unremarkable. VASCULATURE: Unremarkable. No abdominal aortic aneurysm. LYMPH NODES: Unremarkable. No enlarged lymph nodes. IMPRESSION: 1. Indwelling Santiago catheter and bulb within the urinary bladder with mixed intralumin al gas and IV contrast. No evidence of contrast extravasation or pneumoperitoneum to suggest urinary bladder perforation. 2. Hepatic steatosis. Electronically signed by: Chris Kim MD 09/08/2022 12:56 AM TRADE SHOW MANAGER Due to temporary technical issues with the PACS/Fluency reporting system, reports are being signed by the in house radiologists without review as a courtesy to insure prompt reporting. The interpreting radiologist is fully responsible for the content of the report.
== END 2022-09-08 01:31 | disposition home or self-care (01) ==
LOC: ER 19:03
DX: R31.0 Gross hematuria (principal); R10.2 Pelvic and perineal pain; N36.8 Other specified disorders of urethra; Z85.51 Personal history of malignant neoplasm of bladder; Z98.890 Other specified postprocedural states; Z88.5 Allergy status to narcotic agent
CPT/HCPCS: 96365; 96361; 87088; 85025; 87086; 80048; 36415; 85610; 85730; 87077; 87186; 81015; 74178; 51702; 99285; Q9967; J7030 ×2

== ENCOUNTER 2022-09-08 15:56 | Day surgery (SDC) | payer OTHER ==
[~2022-09-08 15:56] MED LIST changes: +CEFTRIAXONE 1,000 MG in NA CHLORIDE 0.9% 50 ML IVPB ONE; -NA CHLORIDE 0.9% 1,000 ML ONE; +VITAMIN K (ADULT) 10 MG/ML IVP ONE
[2022-09-08] MEDS ORDERED: CEFTRIAXONE 1000 MG/VIAL ONE (16:11)
[2022-09-08] MEDS ORDERED: NA CHLORIDE 0.9% 1,000 ML ONE (16:11)
[2022-09-08] MEDS ORDERED: SUCCINYLCHOLINE 20 MG/ML (10 ML) IV ONE (17:29)
[2022-09-08] MEDS ORDERED: FENTANYL CITR 100 MCG/2 ML ONE ×2 (17:34→19:33)
[2022-09-08] MEDS ORDERED: propofoL 200 MG/20 ML VIAL IV ONE (17:35)
[2022-09-08] MEDS ORDERED: MIDAZOLAM HCL 2 MG/2 ML INJ ONE (17:35)
[2022-09-08] MEDS ORDERED: ONDANSETRON 4 MG/2 ML VIAL ONE (18:00)
[2022-09-08] MEDS ORDERED: dexAMETHasone 10 MG/ML VIAL ONE (18:00)
[2022-09-08] MEDS ORDERED: GLYCOPYRROLATE 0.2 MG/ML SYR ONE (18:02)
[2022-09-08] MEDS ORDERED: KETOROLAC 30 MG/ML INJ ONE (18:50)
[2022-09-08] MEDS: MORPHINE 4 MG/ML SYR ONE ×4 (19:00→19:17)
[2022-09-08] MEDS ORDERED: OPIUM/BELLADONNA SUPPOS (30-16.2 MG) PR ONE (19:16)
[2022-09-08] MEDS ORDERED: PHENAZOPYRIDINE 100MG TAB PO ONE ×3 (19:16→20:40)
[2022-09-08 19:18] LABS: Absolute Lymphocytes (CBC) 1.1 K/uL (0.7-4.9); Hematocrit 32.1 % (36.0-45.0); Lymphocytes % 11.6 % (15.3-44.8); MCV 84.7 fL (80-100); MPV 7.8 fL (7.6-11.3); RBC Red Blood Cell Count 3.79 M/uL (3.86-4.86)
[2022-09-08 19:26] LABS: Protime INR 1.43
--- NOTE | 2022-09-08 19:50 | RAD REPORT ---
EXAM DESCRIPTION: RAD - Urethrocystogrphy Retrograde - 09/08/2022 7:41 pm FINDINGS: There were 11 portable KUB images obtained during fluoroscopic assisted retrograde uretero gram. Dose was 10.8 mGy. Fluoro time was 14 seconds
[2022-09-08 20:11] VITALS: BP 104/65; TEMP 98.1; O2SAT 96
[2022-09-08] MEDS ORDERED: OXYBUTYNIN CHLORIDE 5 MG TAB ONE (20:43)
[2022-09-08] MEDS ORDERED: TRAMADOL 37.5mg/APAP 325mg PER TAB PO ONE (21:41)
[2022-09-08] MEDS ORDERED: TRAMADOL HCL 50 MG TAB ONE (21:44)
[2022-09-09] MEDS ORDERED: OXYBUTYNIN ER 5 MG TAB PO SCH (09:00)
--- NOTE | 2022-09-11 13:20 | OP ---
Surgeon: LEI JACKMAN Preoperative Diagnoses: 1.Gross hematuria. 2.Clot urinary retention. 3.Noninvasive low-grade urothelial carcinoma of bladder. Postoperative Diagnoses: 1.Gross hematuria. 2.Clot urinary retention. 3.Noninvasive low-grade urothelial carcinoma of bladder. Procedures: 1.Cystoscopy with clot evacuation and fulguration. 2.Bilateral retrograde pyelography. Indication For Procedure: Ms. Rojas was seen in the Urology Clinic today having been seen in the [facility] Department on 2 occasions this prior several days. She was having significant suprapubic disc omfort associated with the presence of a large volume of intravesical clot and urinary retention. Sh e had resumed her Xarelto postoperatively as instructed after her urine was clear for several days, a nd unfortunately did not recognize that she was taking an anticoagulant when inquired as to whether s he was on any blood thinners that might propagate persistent bleeding. Attempts to irrigate her blad fabrice with a urethral Santiago catheter were unsuccessful, so she presents for definitive management opera tively. Procedure In Detail: The patient was consented in the preoperative holding area before being transfe rred to the operative suite, where general anesthesia was induced. She was given ceftriaxone 1 g IV antimicrobial prophylaxis and Pneumoboots were provided for DVT prophylaxis. Because her INR was autumn vated for an uncertain reason, since she was on Xarelto, which should not elevate the INR, she was gi tran 10 mg of IV vitamin K to reverse the clotting disorder if possible. She was then placed in the l ithotomy position, padded and secured to the table appropriately. Her genitalia were prepped with Hi biclens and she was draped in standard fashion. The case was begun using the 26-Malagasy resectoscope sheath and a visual obturator to traverse the urethra and into the bladder. Upon entry, the bladder was full of formed clot. No significant irrigation of fluid would occur. Attempts to Ellik evacuate the clot were very difficult initially as the clot was very dense. However, with multiple rounds of manual manipulation and irrigation, I was able to remove approximately 750 cc of formed clot from wi thin her bladder and eventually clear the bladder off the clot. I then surveyed the bladder in its e ntirety, and the prior resection site was intact without any obvious perforation and there was oozing from the periphery of the resection site. As a result, I removed a lot of the fibrinous debris from the associated clot from that resection site and fulgurated the entirety of the resection site to en sure complete hemostasis. The remainder of the bladder was surveyed, and no additional sites of blee ding were noted. As a result, I decompressed her bladder off fluid and urine and surveyed for bleedi ng, fulgurating any additional ooze observed until there was absolutely no ongoing bleeding. I then turned my attention to completing the staging evaluation of her upper tracts, which was not as well d one with the CT scan performed when she was in the Emergency Department yesterday. As a result, I pa ssed a 5-Malagasy ureteral access catheter into her bladder via the resectoscope and into the ureteral orifice on the right side and performed a retrograde pyelogram. Right retrograde pyelography: Using a 70:30 mixture of Omnipaque and saline, contrast was injected v ia the lumen of the 5-Malagasy ureteral access catheter and did propagate up a nondilated distal into t he mid and proximal right ureter before entering the renal pelvis, which was without pelviectasis or caliectasis. The calyces were sharp and there were no filling defects noted along the entirety of th e course of the ureter or within the kidney. As a result, the 5-Malagasy ureteral access catheter was removed, and the left ureteral orifice was similarly cannulated. Left retrograde pyelography: Again, using fluoroscopy and an injection of a 70:30 mixture of Omnipaq ue and saline, the contrast mixture was injected via the 5-Malagasy ureteral access catheter and did pr opagate up the distal into the mid and proximal ureter before entering the renal pelvis on the left s janice. The pelvis did fill without evidence of filling defect and the upper and mid pole calyces also filled with no filling defects noted. In the lower pole infundibulum did fill, but the calyx did not so I injected an additional bolus of full-strength contrast and this time was able to completely mu l the lower pole calyx and an additional mid lower pole calyx with a narrow infundibulum that was pre viously hidden with evidence of no filling defect and no caliectasis. As a result, the 5-Malagasy uret eral access catheter was removed, and the patient's bladder was again surveyed. With no additional b leeding noted, I left her bladder somewhat full of saline and passed an 18-Malagasy catheter into her b ladder with ease. I then connected the catheter to a floor bag and the case was concluded. The willie ent was taken out of the lithotomy position, awakened from general anesthesia, transferred to a [facility], and then transferred to the recovery room in good condition. Complications: None. Discharge Disposition: She will remain off the Eliquis for at least the next 10 to 14 days while the resection site has an opportunity to heal and stabilize. After 3 days off the Eliquis, I will provi de her with a prescription for Lovenox somewhere between 40 to 60 mg, essentially DVT prophylaxis dos ing, to be given subcutaneously over the course of the next 10 to 14 days while she remains off the E liquis. At the end of that time, as long as she is having no significant bleeding on the Lovenox, we will then allow her to resume her Xarelto and assess for any recurrence of bleeding. At that point, if no recurrence of bleeding is noted, we will then plan to initiate an induction course of intraves ical gemcitabine chemotherapy 2 g in 50 cc normal saline once a week for 6 weeks. We will go ahead a nd schedule that to begin 2 weeks from today. She will also be discharged with an antimicrobial give n the gram-negative abdon seen in her urine. We will follow up on that culture to confirm adequacy of the antimicrobial. She received ceftriaxone last night in the Emergency Department and again today p rior to surgery. CORINA/FABRICIO Voice ID: [id number] Report ID: [id number]
== END 2022-09-08 21:44 | disposition home or self-care (01) ==
LOC: OR 15:56
PROVIDERS: ATTEND Urology
PROC: 0TCB8ZZ Extirpation of Matter from Bladder, Via Natural or Artificial Opening Endoscopic (ICD-10-PCS; principal; 2022-09-08 17:00)
DX: R31.0 Gross hematuria (principal); R33.8 Other retention of urine; C67.9 Malignant neoplasm of bladder, unspecified; R79.1 Abnormal coagulation profile
CPT/HCPCS: 85025; 36415; 85610; 82947 ×2; 74450; 51610; 52001; J2704; J3430; J2250; J3010 ×2; J1100; J7030; J2405; J0330

== ENCOUNTER 2023-03-05 22:37 | Emergency (ER) | payer OTHER ==
[2023-03-05 23:03] LABS: Specific Gravity 1.009 (1.005-1.030); Urine Bilirubin NEGATIVE (Negative); Urine Blood Negative (Negative); Urine Clarity Clear (Clear); Urine Color Light-Yellow (Yellow); Urine Glucose NEGATIVE (Negative); Urine Protein NEGATIVE (Negative); Urine Urobilinogen Normal (Normal)
[2023-03-05] MEDS ORDERED: NA CHLORIDE 0.9% 1,000 ML ONE (23:13)
[2023-03-05] MEDS ORDERED: FAMOTIDINE 20 MG/2 ML VIAL IV ONE (23:13)
[2023-03-05] MEDS ORDERED: MORPHINE 4 MG/ML SYR ONE (23:13)
[2023-03-05] MEDS ORDERED: ONDANSETRON 4 MG/2 ML VIAL ONE (23:13)
[2023-03-05 23:20] LABS: Absolute Lymphocytes (CBC) 2.4 K/uL (0.7-4.9); Hematocrit 39.6 % (36.0-45.0); Lymphocytes % 25.4 % (15.3-44.8); MCV 80.7 fL (80-100); MPV 8.7 fL (7.6-11.3); RBC Red Blood Cell Count 4.91 M/uL (3.86-4.86)
[2023-03-05 23:30] LABS: Albumin 2.9 g/dL (3.4-5.0); Bilirubin Total 0.2 mg/dL (0.2-1.0); Potassium 3.8 mEq/L (3.5-5.1); Protein, Total 7.9 g/dL (6.4-8.2)
--- NOTE | 2023-03-06 01:23 | EDPHYS ---
Physician Documentation [facility] Name: Ana Luisa Rojas Age: 57 yrs Sex: Female : 1965 Arrival Date: 03/05/2023 Time: 22:37 Bed 2 Private MD: CHRISTELLE Physician Jerod Fuentes HPI: 03/06 01:16 This 57 yrs old Female presents to ER via Ambulatory with complaints of norris Abdominal Pain. 01:16 The patient presents with abdominal pain right lower quadrant, in the left lower norris quadrant, abdominal distention in the upper abdomen, in the lower abdomen. Onset: The symptoms/episode began/occurred 2 day(s) ago. The symptoms do not radiate. Associated signs and symptoms: none. Modifying factors: The symptoms are alleviated by nothing, the symptoms are aggravated by nothing. 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 LMP N/A - mb9 Historical: - Allergies: 22:49 Codeine; mb9 - Home Meds: 22:51 Xanax 1 mg Oral tablet [Active]; losartan 100 mg oral tablet [Active]; metformin 1,000 mb9 mg Oral Tablet, ER Gastric Retention 24 hr 2 times per day [Active]; furosemide 20 mg Oral tablet once [Active]; venlafaxine 150 mg oral Capsule, ER 24 hr once [Active]; nebivolol 10 mg oral tablet daily [Active]; Xarelto 20 mg oral tablet once [Active]; pantoprazole 40 mg oral tablet, delayed release (enteric coated) daily [Active]; levothyroxine 25 mcg capsule once [Active]; - PMHx: 22:49 Anxiety; CHF; COPD; depressive disorder; diabetes mellitus; mb9 - PSHx: 22:49 Appendectomy; Ligation of fallopian tube; Total abdominal hysterectomy; mb9 - Immunization history:: Adult Immunizations up to date. - Social history:: Smoking status: Patient reports the use of cigarette tobacco products, smokes one pack cigarettes per day. - Family history:: not pertinent. - History obtained from: . ROS: 03/06 01:16 Constitutional: Negative for fever, chills, and weight loss, Eyes: Negative for injury, norris pain, redness, and discharge, ENT: Negative for injury, pain, and discharge, Neck: Negative for injury, pain, and swelling, Cardiovascular: Negative for chest pain, palpitations, and edema, Respiratory: Negative for shortness of breath, cough, wheezing, and pleuritic chest pain, Back: Negative for injury and pain, : Negative for injury, bleeding, discharge, and swelling, MS/Extremity: Negative for injury and deformity, Skin: Negative for injury, rash, and discoloration, Neuro: Negative for headache, weakness, numbness, tingling, and seizure, Psych: Negative for depression, anxiety, suicide ideation, homicidal ideation, and hallucinations, Allergy/Immunology: Negative for hives, rash, and allergies, Endocrine: Negative for neck swelling, polydipsia, polyuria, polyphagia, and marked weight changes, Hematologic/Lymphatic: Negative for swollen nodes, abnormal bleeding, and unusual bruising. Abdomen/GI: Positive for abdominal cramps, abdominal distension, of the right lower quadrant and left lower quadrant. Exam: :16 Constitutional: This is a well developed, well nourished patient who is awake, alert, norris and in no acute distress. Head/Face: Normocephalic, atraumatic. Eyes: Pupils equal round and reactive to light, extra-ocular motions intact. Lids and lashes normal. Conjunctiva and sclera are non-icteric and not injected. Cornea within normal limits. Periorbital areas with no swelling, redness, or edema. ENT: Nares patent. No nasal discharge, no septal abnormalities noted. Tympanic membranes are normal and external auditory canals are clear. Oropharynx with no redness, swelling, or masses, exudates, or evidence of obstruction, uvula midline. Mucous membranes moist. Neck: Trachea midline, no thyromegaly or masses palpated, and no cervical lymphadenopathy. Supple, full range of motion without nuchal rigidity, or vertebral point tenderness. No Meningismus. Chest/axilla: Normal chest wall appearance and motion. Nontender with no deformity. No lesions are appreciated. Cardiovascular: Regular rate and rhythm with a normal S1 and S2. No gallops, murmurs, or rubs. Normal PMI, no JVD. No pulse deficits. Respiratory: Lungs have equal breath sounds bilaterally, clear to auscultation and percussion. No rales, rhonchi or wheezes noted. No increased work of breathing, no retractions or nasal flaring. Back: No spinal tenderness. No costovertebral tenderness. Full range of motion. Female : Normal external genitalia. Skin: Warm, dry with normal turgor. Normal color with no rashes, no lesions, and no evidence of cellulitis. MS/ Extremity: Pulses equal, no cyanosis. Neurovascular intact. Full, normal range of motion. Neuro: Awake and alert, GCS 15, oriented to person, place, time, and situation. Cranial nerves II-XII grossly intact. Motor strength 5/5 in all extremities. Sensory grossly intact. Cerebellar exam normal. Normal gait. 01:16 ECG was reviewed by the Attending Physician. 01:16 Abdomen/GI: Inspection: distension, that is mild, Bowel sounds: active, Palpation: soft, nontender, in the right lower quadrant and left lower quadrant, Liver: no appreciated palpable abnormalities, Hernia: not appreciated. Vital Signs: 03/05 22:47 BP 139 / 72; Pulse 76; Resp 20; Temp 98.1(O); Pulse Ox 98% on R/A; Weight 122.47 kg; mb9 Height 5 ft. 1 in. ; Pain 5/10; 23:45 BP 98 / 57; Pulse 81; Resp 19 S; Pulse Ox 95% on R/A; as6 03/06 00:30 BP 105 / 69; Pulse 72; Resp 16; Pulse Ox 94% on R/A; jb4 01:25 BP 107 / 69; Pulse 68; Resp 18 S; Pulse Ox 94% on R/A; as6 03/05 22:47 Body Mass Index 51.02 (122.47 kg, 154.94 cm) [facility] 03/05 22:47 Pain Scale: Adult 9 MDM: 03/05 22:47 Patient medically screened. norris 03/06 01:21 Differential diagnosis: appendicitis, bowel obstruction, diverticulitis, Dysmenorrhea, norris Mesenteric ischemia or infarction, non-specific abd pain, pancreatitis, Peptic Ulcer Disease, Pyelonephritis, Ureterolithiasis, urinary tract infection. Data reviewed: vital signs, nurses notes, lab test result(s), EKG, radiologic studies, CT scan, plain films. Consideration of Admission/Observation Escalation of care including admission/observation considered. I considered the following discharge prescriptions or medication management in the emergency department Medications were administered in the Emergency Department. See MAR. Test considered but Not performed: Ultrasound NO ABD USG. Care significantly affected by the following chronic conditions: Diabetes, Congestive Heart Failure, Obesity, COPD , ANXIETY. 03/05 22:48 Order name: CBC with Diff; Complete Time: 01:04 [facility] 03/05 22:48 Order name: CMP; Complete Time: 01:04 [facility] 03/05 22:48 Order name: Lipase; Complete Time: 01:04 [facility] 03/05 22:48 Order name: Test, Urine; Complete Time: 01:04 [facility] 03/05 22:48 Order name: Urinalysis w/ reflexes; Complete Time: 01:04 [facility] 03/05 22:48 Order name: CT Abd/Pelvis - IV Contrast Only [facility] 03/05 23:03 Order name: Chest Single View XRAY [facility] 03/05 23:03 Order name: EKG; Complete Time: 23:04 [facility] 03/05 22:48 Order name: IV Saline Lock; Complete Time: 23:13 [facility] 03/05 22:48 Order name: Labs collected and sent; Complete Time: 23:13 [facility] 03/05 23:03 Order name: EKG - Nurse/Tech; Complete Time: 23:22 [facility] EC:16 Rate is 75 beats/min. Rhythm is regular. QRS [place] is Normal. MO interval is normal. QRS norris interval is normal. QT interval is normal. No Q waves. T waves are Normal. No ST changes noted. Clinical impression: NSR w/ Non-specific ST/T Changes and No evidence of ischemia. Interpreted by me. Reviewed by me. Administered Medications: 03/05 23:15 Drug: NS 0.9% IV 1000 ml Route: IV; Rate: 1 bolus; Site: right antecubital; [facility] 03/06 01:33 Follow up: Response: No adverse reaction; IV Status: Completed infusion; IV Intake: as6 1000ml 03/05 23:15 Drug: Famotidine IVP 20 mg Route: IVP; Site: right antecubital; 03/06 01:33 Follow up: Response: No adverse reaction 03/05 23:15 Drug: Ondansetron IVP 4 mg Route: IVP; Site: right antecubital; [facility] 03/06 01:33 Follow up: Response: No adverse reaction 03/05 23:15 Drug: morphine IVP or IV 4 mg Route: IVP; Infused Over: 4 mins; Site: right antecubital;[facility] 03/06 01:33 Follow up: Response: No adverse reaction as6 Disposition Summary: 03/06/23 01:22 Discharge Ordered Location: Home [facility] Problem: new norris Symptoms: have improved norris Condition: Stable norris Diagnosis - Abdominal tenderness norris Followup: norris - With: Private Physician - When: 2 - 3 days - Reason: Recheck today's complaints, Continuance of care, Re-evaluation by your physician Followup: norris - With: Tyrone Castillo MD - When: 2 - 3 days - Reason: Recheck today's complaints, Continuance of care, Re-evaluation by your physician Discharge Instructions: - Discharge Summary Sheet norris - Abdominal Pain, Adult norris - Abdominal Pain, Adult, [id number] [facility] Forms: - Medication Reconciliation Form norris - Thank You Letter norris - Antibiotic Education norris - Prescription Opioid Use norris - [email or web address] [facility] Prescriptions: - dicyclomine 20 mg Oral Tablet - take 1 tablet by ORAL route 4 times per day; 28 tablet; Refills: 0, Product norris Selection Permitted Signatures: Dispatcher [employer] Jerod Holcomb MD MD cha Bryson, James, RN RN jb4 Sarah Carbone RN RN mb9 Sunny Bateman RN as6
--- NOTE | 2023-03-06 01:23 | ER ---
Nurse's Notes [facility] Name: Ana Luisa Rojas Age: 57 yrs Sex: Female : 1965 Arrival Date: 03/05/2023 Time: 22:37 Bed 2 Private MD: Diagnosis: Abdominal tenderness Presentation: 03/05 22:47 Chief complaint: Patient states: "Stomach pain x 2 weeks that got worse this evening. mb9 Throbbing pain that radiates to the RLQ and LLQ. Pain is making me feel nauseous". Coronavirus screen: Vaccine status: Patient reports being unvaccinated. Ebola Screen: No symptoms or risks identified at this time. Initial Sepsis Screen: Does the patient meet any 2 criteria? No. Patient's initial sepsis screen is negative. Does the patient have a suspected source of infection? No. Patient's initial sepsis screen is negative. Risk Assessment: Do you want to hurt yourself or someone else? Patient reports no desire to harm self or others. Onset of symptoms was 2022. 22:47 Method Of Arrival: Ambulatory mb9 22:47 Acuity: BRODY 3 mb9 Triage Assessment: 22:49 General: Appears uncomfortable, Behavior is cooperative. Pain: Complains of pain in mb9 abdomen. Neuro: Level of Consciousness is awake, alert, obeys commands, Oriented to person, place, time, situation, Appropriate for age. Respiratory: Airway is patent Respiratory effort is even, unlabored, Respiratory pattern is regular, symmetrical. GI: Abdomen is round non-distended, Reports lower abdominal pain, nausea. Derm: Skin is pink, warm \\T\\ dry. Musculoskeletal: Range of motion: intact in all extremities. [employer] SOLUTION ARCHITECT: 22:50 LMP N/A - mb9 Historical: - Allergies: 22:49 Codeine; mb9 - Home Meds: 22:51 Xanax 1 mg Oral tablet [Active]; losartan 100 mg oral tablet [Active]; metformin 1,000 mb9 mg Oral Tablet, ER Gastric Retention 24 hr 2 times per day [Active]; furosemide 20 mg Oral tablet once [Active]; venlafaxine 150 mg oral Capsule, ER 24 hr once [Active]; nebivolol 10 mg oral tablet daily [Active]; Xarelto 20 mg oral tablet once [Active]; pantoprazole 40 mg oral tablet, delayed release (enteric coated) daily [Active]; levothyroxine 25 mcg capsule once [Active]; - PMHx: 22:49 Anxiety; CHF; COPD; depressive disorder; diabetes mellitus; mb9 - PSHx: 22:49 Appendectomy; Ligation of fallopian tube; Total abdominal hysterectomy; mb9 - Immunization history:: Adult Immunizations up to date. - Social history:: Smoking status: Patient reports the use of cigarette tobacco products, smokes one pack cigarettes per day. - Family history:: not pertinent. - History obtained from: . Screenin:50 [facility] ED Fall Risk Assessment (Adult) History of falling in the last 3 months, mb9 including since admission No falls in past 3 months (0 pts) Confusion or Disorientation No (0 pts) Intoxicated or Sedated No (0 pts) Impaired Gait No (0 pts) Mobility Assist Device Used No (0 pt) Altered Elimination No (0 pt) Score/Fall Risk Level 0 - 2 = Low Risk Oriented to surroundings, Maintained a safe environment, Educated pt \\T\\ family on fall prevention, incl call for assistance when getting out of bed. Abuse screen: Denies threats or abuse. Nutritional screening: No deficits noted. Tuberculosis screening: No symptoms or risk factors identified. Assessment: 23:20 General: Appears in no apparent distress. comfortable, Behavior is calm, cooperative, jb4 appropriate for age. Pain: Complains of pain in abdomen Pain does not radiate. Pain currently is 5 out of 10 on a pain scale. Neuro: Level of Consciousness is awake, alert, obeys commands, Oriented to person, place, time, situation. Cardiovascular: Patient's skin is warm and dry. Respiratory: Airway is patent Respiratory effort is even, unlabored, Respiratory pattern is regular, symmetrical. GI: Abdomen is round non-distended, obese. : No signs and/or symptoms were reported regarding the genitourinary system. EENT: No signs and/or symptoms were reported regarding the EENT system. Derm: Skin is intact, Skin is pink, warm \\T\\ dry. Musculoskeletal: Circulation, motion, and sensation intact. Range of motion: intact in all extremities. 23:45 Reassessment: Patient appears in no apparent distress at this time. no complaints or as6 concerns at this time. 03/06 01:17 Reassessment: Patient appears in no apparent distress at this time. Patient and/or jb4 family updated on plan of care and expected duration. Pain level reassessed. Patient is alert, oriented x 3, equal unlabored respirations, skin warm/dry/pink. Vital Signs: 03/05 22:47 BP 139 / 72; Pulse 76; Resp 20; Temp 98.1(O); Pulse Ox 98% on R/A; Weight 122.47 kg; mb9 Height 5 ft. 1 in. ; Pain 5/10; 23:45 BP 98 / 57; Pulse 81; Resp 19 S; Pulse Ox 95% on R/A; as6 03/06 00:30 BP 105 / 69; Pulse 72; Resp 16; Pulse Ox 94% on R/A; jb4 01:25 BP 107 / 69; Pulse 68; Resp 18 S; Pulse Ox 94% on R/A; as6 03/05 22:47 Body Mass Index 51.02 (122.47 kg, 154.94 cm) mb9 03/05 22:47 Pain Scale: Adult mb9 ED Course: 03/05 22:41 Patient arrived in ED. ag3 22:47 Jerod Fuentes MD is Attending Physician. [facility] 22:47 Arm band placed on. mb9 22:49 Triage completed. mb9 22:55 Test, Urine Sent. bc6 22:55 Urinalysis w/ reflexes Sent. bc6 23:00 Missed attempt(s): 20 gauge in left antecubital area. Bleeding controlled, band aid mc5 applied, catheter tip intact. 23:08 Inserted saline lock: 20 gauge in right antecubital area, using aseptic technique. mc5 Blood collected. 23:22 EKG done, by ED staff, reviewed by Jerod Fuentes MD. mc5 23:23 Chest Single View XRAY In Process Unspecified. EDMS 03/06 00:01 CT Abd/Pelvis - IV Contrast Only In Process Unspecified. EDMS 01:16 Bogdan Barrera, RN is Primary Nurse. jb4 01:23 Tyrone Castlilo MD is Referral Physician. norris 01:25 Bed in low position. Call light in reach. as6 01:25 No provider procedures requiring assistance completed. as6 01:33 IV discontinued, intact, bleeding controlled, No redness/swelling at site. Pressure as6 dressing applied. Administered Medications: 03/05 23:15 Drug: NS 0.9% IV 1000 ml Route: IV; Rate: 1 bolus; Site: right antecubital; [facility] 03/06 01:33 Follow up: Response: No adverse reaction; IV Status: Completed infusion; IV Intake: as6 1000ml 03/05 23:15 Drug: Famotidine IVP 20 mg Route: IVP; Site: right antecubital; 03/06 01:33 Follow up: Response: No adverse reaction as6 03/05 23:15 Drug: Ondansetron IVP 4 mg Route: IVP; Site: right antecubital; 03/06 01:33 Follow up: Response: No adverse reaction as6 03/05 23:15 Drug: morphine IVP or IV 4 mg Route: IVP; Infused Over: 4 mins; Site: right antecubital;03/06 01:33 Follow up: Response: No adverse reaction as6 Medication: 03/05 22:50 VIS not applicable for this client. mb9 Intake: 03/06 01:33 IV: 1000ml; Total: 1000ml. as6 Outcome: 01:22 Discharge ordered by MD. pisano 01:25 Discharged to home ambulatory, with significant other. as6 01:25 Condition: stable 01:33 Discharge instructions given to patient, Instructed on discharge instructions, follow as6 up and referral plans. medication usage, Demonstrated understanding of instructions, follow-up care, medications, Prescriptions given X 1. 01:33 Patient left the ED. as6 Signatures: Dispatcher [employer] EDMS Jerod Fuentes MD MD cha Bryson, James RN RN jb4 Alejandra Rodriguez3 Sunny Bateman RN RN as6 Sarah Carbone RN RN mb9 Jessica Phan Moriah 5
[2023-03-06 02:20] VITALS: TEMP 98.1
[2023-03-06 02:25] VITALS: O2SAT 94
[2023-03-06 02:27] VITALS: BP 107/69
--- NOTE | 2023-03-06 18:46 | RAD REPORT ---
EXAM DESCRIPTION: RAD - Chest Single View - 03/05/2023 11:21 pm CLINICAL HISTORY: 57 years Female, COUGH TECHNIQUE: 1 view (Single frontal view of the chest) COMPARISON: 08/18/2022 FINDINGS: Patient's body habitus results in projectional magnification artifact. LINES AND TUBES: None. CARDIOVASCULAR STRUCTURES: Upper limits of normal heart size. Mild pulmonary venous congestion versus projectional artifact. LUNGS: No confluent areas of acute consolidation. PLEURA: No layering pleural effusions. No pneumothorax. BONES: No acute osseous abnormality of the thorax. IMPRESSION: 1. Mild pulmonary venous congestion versus projectional artifact. Electronically signed by: Prasad Ge MD 03/05/2023 11:51 PM CDT Due to temporary technical issues with the PACS/Fluency reporting system, reports are being signed by the in house radiologists without review as a courtesy to insure prompt reporting. The interpreting radiologist is fully responsible for the content of the report.
--- NOTE | 2023-03-06 18:52 | RAD REPORT ---
EXAM DESCRIPTION: CT - Abdomen Pelvis W Contrast - 03/06/2023 7:08 am CLINICAL HISTORY: 57 years Female ABD PAIN COMPARISON: CT abdomen pelvis 09/08/2022 TECHNIQUE: CT of the abdomen and pelvis with intravenous contrast. All CT scans at this facility use dose modulation, iterative reconstruction, and/or weight based dosi ng when appropriate to reduce radiation dose to as low as reasonably achievable. FINDINGS: Lower thorax: Bibasilar scarring/atelectasis. Coronary artery calcifications. Abdomen: Stomach: Within normal limits Liver: Subcentimeter hypodensity in the left hepatic lobe, too small to characterize. No intrahepatic ductal distention. Gallbladder: Nondistended Pancreas: Within normal limits Spleen: Within normal limits Right kidney: No hydronephrosis. No focal lesion. Left kidney: No hydronephrosis. 2.7 cm ovoid hypodensity, likely cyst. Adrenal glands: Within normal limits Vascular structures: Atherosclerosis of the abdominal aorta and major branches. Nodes: No lymphadenopathy by size criteria Pelvis: Small bowel: No significant distention. Appendix: Not visualized. No pericecal inflammatory changes. Colon: No distention or acute pericolonic edema. Peritoneum: No free intraperitoneal fluid or air. Surgical clips in the right lower quadrant and left pelvis. Bones: No acute bone findings. Bladder: Unremarkable. Reproductive organs: No acute findings. Soft tissues: Small fat-containing umbilical hernia. IMPRESSION: No acute abdominopelvic findings. Electronically signed by: Tylor Street MD 03/06/2023 12:34 AM CDT Due to temporary technical issues with the PACS/Fluency reporting system, reports are being signed by the in house radiologists without review as a courtesy to insure prompt reporting. The interpreting radiologist is fully responsible for the content of the report.
--- NOTE | 2023-03-07 12:32 | EKG ---
Test Date: 2023-03-05 Test Time: 23:19:53 [employer]: JAQUELIN MEASUREMENT RESULTS: Intervals: Rate: 75 MT: 176 QRSD: 104 QT: 378 QTc: 422 [place]: P: 56 MT: 176 QRS: 12 T: 37 INTERPRETIVE STATEMENTS: Normal sinus rhythm with sinus arrhythmia Normal ECG Compared to ECG 08/18/2022 13:12:41 Incomplete right bundle-branch block no longer present Electronically Signed On 03-07-23 12:32:23 CDT by Allan Patel
== END 2023-03-06 01:33 | disposition home or self-care (01) ==
LOC: ER 22:37
DX: R10.813 Right lower quadrant abdominal tenderness (principal); R10.814 Left lower quadrant abdominal tenderness; F17.210 Nicotine dependence, cigarettes, uncomplicated; E11.9 Type 2 diabetes mellitus without complications; F41.9 Anxiety disorder, unspecified; I50.9 Heart failure, unspecified; J44.9 Chronic obstructive pulmonary disease, unspecified; Z88.5 Allergy status to narcotic agent
CPT/HCPCS: 96361; 93005; 85025; 36415; 81025; 81003; 83690; 80053; 74177; 71045; 96375; 96374; 99284; Q9967; J2405; J7030

== ENCOUNTER 2023-05-08 07:53 | Day surgery (SDC) | payer OTHER ==
[2023-05-08 08:28] LABS: Specific Gravity 1.015 (1.005-1.030); Urine Bacteria <20 /HPF (<20); Urine Bilirubin NEGATIVE (Negative); Urine Blood Negative (Negative); Urine Clarity Turbid (Clear); Urine Color Light-Yellow (Yellow); Urine Glucose NEGATIVE (Negative); Urine Mucus Slight /HPF (None Seen); Urine Protein NEGATIVE (Negative); Urine Urobilinogen Normal (Normal); Urine WBC Clump Rare /HPF (None Seen); Urine pH 6.5 (5.0-7.0)
[2023-05-08] MEDS ORDERED: GEMCITABINE HCL 26.3 ML IS ONE (08:30)
[2023-05-08 08:47] VITALS: BP 104/75; TEMP 98.2; O2SAT 93; BMI 43.5
[2023-05-08] MEDS ORDERED: DIAZEPAM 5 MG TABLET ONE (09:19)
[2023-05-08] MEDS ORDERED: oxyBUTYnin chloride 5 MG TAB ONE (09:19)
--- NOTE | 2023-05-08 11:33 | P.OP ---
Date of Service: 05/08/23 Preoperative diagnosis: Large volume low-grade urothelial carcinoma Postoperative diagnosis: same Primary procedure: Instillation of intravesical gemcitabine 2 g in 50 cc normal saline Secondary procedure: Insertion of urethral Santiago catheter Estimated blood loss: None Operative Technique: Indication for procedure: 57-year-old woman with multiple medical comorbidities and extensive smoking history with gross hematuria status post TURBT revealing low-grade urothelial carcinoma, but in large volume. She an induction course of intravesical gemcitabine without recurrence on recent outpatient cystoscopy, and she has elected to continue with monthly maintenance for 1 year per recommendations. Procedure note: She was admitted to the day surgery procedure area where a urine sample was taken and sent for analysis. No sign of infection or other abnormality was noted. She was given a dose of Ditropan as well as Valium while the chemotherapy was prepared to stabilize her bladder. A 16 Welsh urethral Santiago catheter was inserted into her bladder with ease, and the bladder was decompressed of clear yellow urine. Her genitalia were draped with blue towels as well as a fluid impermeable drape, and a the catheter was delivered through a hiatus made in the drape. The patient was provided a face shield, and I retrograde instilled 52 cc of gemcitabine 2 g and normal saline via the catheter with ease. She tolerated the instillation well and without any obvious complication or irritability. The catheter was clamped using a Michelle clamp to keep the fluid in situ, and it was connected to a leg bag for ease of subsequent decompression in a contained fashion. She was then allowed to keep the chemotherapy in situ for 60 minutes targeting 90 minutes of total therapy, r otating by one quarter turn every 15 minutes over the course of the initial 60 minutes targeting 90 minutes of total therapy. The chemotherapy was then evacuated into the attached leg bag, and the catheter was removed. She was then discharged from the clinic in good condition. Complications: None Drain(s): Urinary catheter Condition: Good Disposition: Follow-up in 1 month for next intravesical gemcitabine instillation targeting a year of total therapy from the beginning of the induction course or around 09/2023.
== END 2023-05-08 11:50 | disposition home or self-care (01) ==
LOC: DS 07:53
PROVIDERS: ATTEND Urology
PROC: 3E0K705 Introduction of Other Antineoplastic into Genitourinary Tract, Via Natural or Artificial Opening (ICD-10-PCS; principal; 2023-05-08)
DX: C67.9 Malignant neoplasm of bladder, unspecified (principal); N32.89 Other specified disorders of bladder; N31.0 Uninhibited neuropathic bladder, not elsewhere classified; N39.9 Disorder of urinary system, unspecified; R31.0 Gross hematuria; R39.9 Unspecified symptoms and signs involving the genitourinary system
CPT/HCPCS: 87088; 81001; 87086; 96365; 96366; 51720; J9201

== ENCOUNTER 2023-06-19 08:30 | Day surgery (SDC) | payer OTHER ==
[~2023-06-19 08:30] MED LIST changes: -CEFTRIAXONE 1,000 MG in NA CHLORIDE 0.9% 50 ML IVPB ONE; +GEMCITABINE HCL 26.3 ML IS ONE; -VITAMIN K (ADULT) 10 MG/ML IVP ONE
[2023-06-19] MEDS ORDERED: oxyBUTYnin chloride 5 MG TAB ONE (09:00)
[2023-06-19 09:11] VITALS: BP 108/60; TEMP 97.5; O2SAT 96
[2023-06-19 09:12] VITALS: BMI 43.5
[2023-06-19 09:34] LABS: Specific Gravity 1.011 (1.005-1.030); Urine Bilirubin NEGATIVE (Negative); Urine Blood Negative (Negative); Urine Clarity Clear (Clear); Urine Color Light-Yellow (Yellow); Urine Glucose NEGATIVE (Negative); Urine Protein NEGATIVE (Negative); Urine Urobilinogen Normal (Normal)
[2023-06-19] MEDS ORDERED: DIAZEPAM 5 MG TABLET ONE (10:04)
--- NOTE | 2023-06-19 20:34 | P.OP ---
Date of Service: 06/19/23 Preoperative diagnosis: Large volume low-grade urothelial carcinoma Postoperative diagnosis: same Primary procedure: Instillation of intravesical gemcitabine 2 g in 50 cc normal saline Secondary procedure: Insertion of urethral Santiago catheter Estimated blood loss: None Operative Technique: Indication for procedure: 57-year-old woman with multiple medical comorbidities and extensive smoking history with gross hematuria status post TURBT revealing low-grade urothelial carcinoma, but in large volume. She an induction course of intravesical gemcitabine without recurrence on recent outpatient cystoscopy, and she has elected to continue with monthly maintenance for 1 year per recommendations. Procedure note: She was admitted to the day surgery procedure area where a urine sample was taken and sent for analysis. No sign of infection or other abnormality was noted. She was given a dose of Ditropan as well as Valium while the chemotherapy was prepared to stabilize her bladder. A 16 Divehi urethral Santiago catheter was inserted into her bladder with ease, and the bladder was decompressed of clear yellow urine. Her genitalia were draped with blue towels as well as a fluid impermeable drape, and a the catheter was delivered through a hiatus made in the drape. The patient was provided a face shield, and I retrograde instilled 52 cc of gemcitabine 2 g and normal saline via the catheter with ease. She tolerated the instillation well and without any obvious complication or irritability. The catheter was clamped using a Michelle clamp to keep the fluid in situ, and it was connected to a leg bag for ease of subsequent decompression in a contained fashion. She was then allowed to keep the chemotherapy in situ for 60 minutes targeting 90 minutes of total therapy, r otating by one quarter turn every 15 minutes over the course of the initial 60 minutes targeting 90 minutes of total therapy. The chemotherapy was then evacuated into the attached leg bag, and the catheter was removed. She was then discharged from the clinic in good condition. Complications: None Drain(s): Urinary catheter Condition: Good Disposition: Follow-up in 1 month for next intravesical gemcitabine instillation targeting a year of total therapy from the beginning of the induction course or around 09/2023.
== END 2023-06-19 12:29 | disposition home or self-care (01) ==
LOC: DS 08:30
PROVIDERS: ATTEND Urology
PROC: 3E0K705 Introduction of Other Antineoplastic into Genitourinary Tract, Via Natural or Artificial Opening (ICD-10-PCS; principal; 2023-06-19)
DX: C67.9 Malignant neoplasm of bladder, unspecified (principal); N32.89 Other specified disorders of bladder; R31.0 Gross hematuria; R39.9 Unspecified symptoms and signs involving the genitourinary system
CPT/HCPCS: 81003; 96365; 51720; J9201

== ENCOUNTER 2023-07-24 08:16 | Day surgery (SDC) | payer OTHER ==
[2023-07-24 08:42] LABS: Specific Gravity 1.012 (1.005-1.030); Urine Bilirubin NEGATIVE (Negative); Urine Blood Negative (Negative); Urine Clarity Clear (Clear); Urine Color Yellow (Yellow); Urine Glucose NEGATIVE (Negative); Urine Protein NEGATIVE (Negative); Urine Urobilinogen Normal (Normal); Urine pH 5.5 (5.0-7.0)
[2023-07-24 08:56] VITALS: BP 94/60; TEMP 98.3; O2SAT 96; BMI 43.2
[2023-07-24] MEDS ORDERED: oxyBUTYnin chloride 5 MG TAB ONE (08:56)
[2023-07-24] MEDS ORDERED: GEMCITABINE HCL 26.3 ML IS ONE (09:00)
[2023-07-24] MEDS ORDERED: DIAZEPAM 5 MG TABLET ONE (09:06)
--- NOTE | 2023-07-24 10:02 | P.OP ---
Date of Service: 07/24/23 Preoperative diagnosis: Large volume low-grade urothelial carcinoma Postoperative diagnosis: same Primary procedure: Instillation of intravesical gemcitabine 2 g in 50 cc normal saline Secondary procedure: Insertion of urethral Santiago catheter Estimated blood loss: None Operative Technique: Indication for procedure: 57-year-old woman with multiple medical comorbidities and extensive smoking history with gross hematuria status post TURBT revealing low-grade urothelial carcinoma, but in large volume. She an induction course of intravesical gemcitabine without recurrence on recent outpatient cystoscopy, and she has elected to continue with monthly maintenance for 1 year per recommendations. Procedure note: She was admitted to the day surgery procedure area where a urine sample was taken and sent for analysis. No sign of infection or other abnormality was noted. She was given a dose of Ditropan as well as Valium while the chemotherapy was prepared to stabilize her bladder. A 16 Portuguese urethral Santiago catheter was inserted into her bladder with ease, and the bladder was decompressed of clear yellow urine. Her genitalia were draped with blue towels as well as a fluid impermeable drape, and a the catheter was delivered through a hiatus made in the drape. The patient was provided a face shield, and I retrograde instilled 52 cc of gemcitabine 2 g and normal saline via the catheter with ease. She tolerated the instillation well and without any obvious complication or irritability. The catheter was clamped using a Michelle clamp to keep the fluid in situ, and it was connected to a leg bag for ease of subsequent decompression in a contained fashion. She was then allowed to keep the chemotherapy in situ for 60 minutes targeting 90 minutes of total therapy, r otating by one quarter turn every 15 minutes over the course of the initial 60 minutes targeting 90 minutes of total therapy. The chemotherapy was then evacuated into the attached leg bag, and the catheter was removed. She was then discharged from the clinic in good condition. Complications: None Drain(s): Urinary catheter Condition: Good Disposition: Follow-up in 1 month for next intravesical gemcitabine instillation targeting a year of total therapy from the beginning of the induction course or around 09/2023.
== END 2023-07-24 10:53 | disposition home or self-care (01) ==
LOC: DS 08:16
PROVIDERS: ATTEND Urology
PROC: 3E0K705 Introduction of Other Antineoplastic into Genitourinary Tract, Via Natural or Artificial Opening (ICD-10-PCS; principal; 2023-07-24)
DX: C67.9 Malignant neoplasm of bladder, unspecified (principal); N32.89 Other specified disorders of bladder; R31.0 Gross hematuria; F17.210 Nicotine dependence, cigarettes, uncomplicated
CPT/HCPCS: 81003; 96365; 51720; J9201

== ENCOUNTER 2023-10-09 07:50 | Day surgery (SDC) | payer OTHER ==
[2023-10-09 08:25] LABS: Specific Gravity 1.012 (1.005-1.030); Urine Bacteria None Seen /HPF (<20); Urine Bilirubin NEGATIVE (Negative); Urine Blood Negative (Negative); Urine Clarity Clear (Clear); Urine Color Colorless (Yellow); Urine Glucose NEGATIVE (Negative); Urine Mucus Slight /HPF (None Seen); Urine Protein NEGATIVE (Negative); Urine RBC <5 /HPF (None Seen); Urine Urobilinogen Normal (Normal); Urine pH 6.5 (5.0-7.0)
[2023-10-09 08:31] VITALS: BP 118/73; TEMP 99.2; O2SAT 96; BMI 42.6
[2023-10-09] MEDS ORDERED: GEMCITABINE HCL 26.3 ML IS ONE (09:00)
[2023-10-09] MEDS ORDERED: OXYBUTYNIN ER 5 MG TAB PO ONE ×2 (09:49→09:51)
[2023-10-09] MEDS ORDERED: DIAZEPAM 5 MG TABLET ONE (09:49)
--- NOTE | 2023-10-09 17:53 | P.OP ---
Date of Service: 10/09/23 Preprocedure diagnoses: Large-volume low-grade urothelial carcinoma Postprocedure diagnosis: Same Principal procedures: Instillation of gemcitabine 2 g and 50 cc normal saline intravesical chemotherapy Secondary procedure: Insertion of urethral Santiago catheter Indication for procedure: 57-year-old woman with extensive smoking history and multiple medical comorbidities who presented with gross hematuria status post TURBT revealing low-grade urothelial carcinoma but in large volume. She completed an induction course of intravesical gemcitabine without recurrence on outpatient cystoscopic analysis and has elected to continue with monthly maintenance for 1 year per recommendations. Procedure note: She was admitted to the day surgery procedure area where a urine sample was taken and sent for analysis. Once it was deemed unremarkable, and she was given preoperative antimicrobials, she was placed in the frog-leg position and a 16 Serbian urethral Santiago catheter was placed via her urethra into her bladder with ease and decompressed it of clear yellow urine. I then draped her genitalia and NALLELY urethral region with blue towels before using a fluid impermeable drape with the catheter brought through the hiatus and the drape in order to cover her body. She was given a face shield to cover her face. I then retrograde in stilled 2 g of gemcitabine and 50 cc normal saline into her bladder with ease. She tolerated this well. She was given 10 mg of Ditropan extended release and 5 mg of Valium immediately prior to the gemcitabine being instilled intravesically. The catheter was clamped using a Michelle clamp and connected to a leg bag to keep the fluid in situ. She was then allowed to rotate by one quarter turn every 15 minutes over the course of the next hour targeting a total of 90 minutes of therapy. After this, the Michelle clamp was removed and the fluid and urine was decompressed and the associated leg bag. The catheter was removed, and she was allowed to wash and then get dressed and was discharged from the day surgery procedure area in good condition. Complications: None Discharge disposition: She has completed 1 year of monthly maintenance intravesical gemcitabine. She should be scheduled for follow-up cystoscopy 6 months after her last cystoscopy completed in the clinic. Subsequent follow-up and imaging will be determined based on evidence of recurrence of the tumor, persistent microscopic hematuria, recurrent UTIs.
== END 2023-10-09 11:19 | disposition home or self-care (01) ==
LOC: DS 07:50
PROVIDERS: ATTEND Urology
PROC: 3E0K705 Introduction of Other Antineoplastic into Genitourinary Tract, Via Natural or Artificial Opening (ICD-10-PCS; principal; 2023-10-09)
DX: C67.9 Malignant neoplasm of bladder, unspecified (principal); N32.89 Other specified disorders of bladder; R31.0 Gross hematuria; R39.9 Unspecified symptoms and signs involving the genitourinary system; Z87.891 Personal history of nicotine dependence
CPT/HCPCS: 81001; 96365; 96366; 51720; J9201

== ENCOUNTER 2024-11-21 20:06 | Emergency (ER) | payer OTHER ==
[2024-11-21 21:56] LABS: Absolute Basophils 0.1 K/uL (0-0.5); Absolute Eosinophils 0.1 K/uL (0-0.5); Absolute Lymphocytes (CBC) 1.5 K/uL (0.7-4.9); Absolute Monocytes 0.6 K/uL (0.1-1.3); Basophils % 0.6 % (0-1.3); Eosinophils % 1.1 % (0-4.4); Hematocrit 40.6 % (36.0-45.0); Hemoglobin 13.7 g/dL (12.0-15.0); Lymphocytes % 16.1 % (15.3-44.8); MCH 27.4 pg (27.0-35.0); MCHC 33.7 g/dL (32.0-36.0); MCV 81.5 fL (80-100); MPV 8.6 fL (7.6-11.3); Monocytes % 6.9 % (3.3-12.3); Neutrophils % 75.3 % (41.7-73.7); Nucleated Red Blood Cells % 0.3 % (0-0); Platelets 240 thou/uL (152-406); RBC Red Blood Cell Count 4.98 M/uL (3.86-4.86); Red Cell Distribution Width 15.8 % (12.1-15.2)
[2024-11-21 22:18] LABS: Albumin 3.1 g/dL (3.4-5.0); Albumin/Globulin Ratio 0.6 (1.1-1.8); Anion Gap 7.6 mEq/L (5.0-15.0); Bilirubin Total 0.3 mg/dL (0.2-1.0); Globulin 4.9 g/dL (2.3-3.5); Potassium 3.6 mEq/L (3.5-5.1)
[2024-11-21] MEDS ORDERED: NA CHLORIDE 0.9% 500 ML ONE (23:26)
[2024-11-21] MEDS ORDERED: SMZ./TMP. 800/160 MG TABLET ONE (23:32)
[2024-11-21] MEDS ORDERED: CIPROFLOXACIN HCL 500 MG TAB ONE (23:32)
--- NOTE | 2024-11-21 23:42 | ER ---
Nurse's Notes [facility] Name: Ana Luisa Rojas Age: 59 yrs Sex: Female : 1965 Arrival Date: 11/21/2024 Time: 20:06 Bed 15 Private MD: Diagnosis: Other postprocedural complications of skin and subcutaneous tissue-RIGHT LABIA, BIOPSY Presentation: 11/21 21:29 Chief complaint: Patient states: had surgery last Sunday on right labia to remove iw cancer, today I think i split it open, it;s hurting and bleeding. Coronavirus screen: At this time, the client does not indicate any symptoms associated with coronavirus-19. Ebola Screen: No symptoms or risks identified at this time. Initial Sepsis Screen: Does the patient meet any 2 criteria? No. Patient's initial sepsis screen is negative. Does the patient have a suspected source of infection? No. Patient's initial sepsis screen is negative. Risk Assessment: Do you want to hurt yourself or someone else? Patient reports no desire to harm self or others. Onset of symptoms was November 21, 2024. 21:29 Method Of Arrival: Wheelchair iw 21:29 Acuity: BRODY 3 iw Historical: - Allergies: 21:30 Codeine; iw - PMHx: 21:30 COPD; CHF; Anxiety; diabetes mellitus; depressive disorder; iw - PSHx: 21:30 Appendectomy; Ligation of fallopian tube; Total abdominal hysterectomy; iw - Immunization history:: Adult Immunizations up to date. - Infectious Disease History:: Denies. - Social history:: Smoking status: . Screenin:34 [facility] ED Fall Risk Assessment (Adult) History of falling in the last 3 months, me1 including since admission No falls in past 3 months (0 pts) Confusion or Disorientation No (0 pts) Intoxicated or Sedated No (0 pts) Impaired Gait No (0 pts) Mobility Assist Device Used No (0 pt) Altered Elimination No (0 pt) Score/Fall Risk Level 0 - 2 = Low Risk Maintained a safe environment, Provided non-skid footwear, Hourly rounding (assess needs \T\ fall precautionary measures) done. Abuse screen: Denies threats or abuse. Nutritional screening: No deficits noted. Tuberculosis screening: No symptoms or risk factors identified. Assessment: 23:34 General: Appears in no apparent distress. Behavior is calm, cooperative, appropriate me1 for age, Reports had surgery last Sunday on right labia to remove cancer, today I think i split it open, it;s hurting and bleeding. Pain: Complains of pain in groin Pain does not radiate. Pain currently is 4 out of 10 on a pain scale. Quality of pain is described as aching, Pain began 2-3 days ago. Is continuous. Neuro: Level of Consciousness is awake, alert, obeys commands, Oriented to person, place, time, situation, Appropriate for age. Cardiovascular: Patient's skin is warm and dry. Respiratory: Airway is patent Respiratory effort is even, unlabored, Respiratory pattern is regular, symmetrical. GI: No signs and/or symptoms were reported involving the gastrointestinal system. : No signs and/or symptoms were reported regarding the genitourinary system. EENT: No signs and/or symptoms were reported regarding the EENT system. Derm: Wound noted groin Wound is surgical incision. Musculoskeletal: No signs and/or symptoms reported regarding the musculoskeletal system. Vital Signs: 21:29 BP 97 / 71; Pulse 72; Resp 18; Pulse Ox 95% ; Weight 122.47 kg; Height 5 ft. 6 in. ; iw Pain 5/10; 11/22 00:06 BP 110 / 71 LA Supine (auto/reg); Pulse 72; me1 00:06 BP 120 / 79 LA Sitting (auto/reg); Pulse 74; me1 00:06 BP 108 / 84 LA Standing (auto/reg); Pulse 75; me1 11/21 21:29 Body Mass Index 43.58 (122.47 kg, 167.64 cm) iw 11/21 21:29 Pain Scale: Adult iw [place] Coma Score: 11/21 23:37 Eye Response: spontaneous(4). Motor Response: obeys commands(6). Verbal Response: norris oriented(5). Total: 15. ED Course: 20:09 Patient arrived in ED. [email or web address] 20:27 Jerod Fuentes MD is Attending Physician. norris 21:30 Triage completed. iw 21:31 Arm band placed on. iw 21:40 Initial lab(s) drawn, by me, sent to lab. Inserted saline lock: 22 gauge in right iw antecubital area, using aseptic technique. Blood collected. Flushed with 10 mL NS. 23:00 Kristal Lockett, RN is Primary Nurse. me1 23:34 Patient has correct armband on for positive identification. Bed in low position. Call me1 light in reach. Side rails up X 1. Provided Education on: POC. Verbalized understanding.. Client placed on continuous cardiac and pulse oximetry monitoring. NIBP monitoring applied. Pulse ox on. NIBP on. 23:34 No provider procedures requiring assistance completed. me1 11/22 00:24 intact, bleeding controlled, No redness/swelling at site. Pressure dressing applied. cp4 Administered Medications: 11/21 23:29 Drug: NS 0.9% IV 500 ml 500 ml IV at 1 bolus once; to be given as a bolus over 30 me1 minutes Volume: 500 ml; Route: IV; Rate: 1 bolus; Site: right antecubital; 11/22 00:24 Follow up: Response: No adverse reaction; IV Status: Completed infusion cp4 11/21 23:33 Drug: Ciprofloxacin PO 500 mg PO once Route: PO; me1 23:58 Follow up: Response: No adverse reaction me1 23:33 Drug: Trimethoprim-Sulfamethoxazole PO (160 mg-800 mg (DS) 1 tablet PO once Route: PO; me1 23:58 Follow up: Response: No adverse reaction me1 Medication: 23:34 VIS not applicable for this client. me1 Outcome: 23:42 Discharge ordered by . norris 03 00:24 Discharged to home ambulatory, cp4 Condition: stable Discharge instructions given to patient, family, Instructed on discharge instructions, follow up and referral plans. medication usage, Demonstrated understanding of instructions, follow-up care, medications, Prescriptions given X 2, 00:25 Patient left the ED. cp4 Signatures: Jerod Fuentes MD MD cha Williams, Irene, RN RN iw Mattie Stevens [email or web address] Kristal Lcokett, BRENT RN mt1 Mildred De Leon cp4 Corrections: (The following items were deleted from the chart) 11/21 21:31 21:29 Resp 18bpm; Pulse Ox 95%; 122.47 kg; Height 5 ft. 6 in.; BMI: 43.5; Pain 5/10, iw Adult; iw 23:34 21:29 Chief complaint: Patient states: had surgery last Sunday on right labia to me1 remove cancer, today I think i split it open, it;s hurting and bleeding iw
--- NOTE | 2024-11-21 23:42 | EDPHYS ---
Physician Documentation [facility] Name: Ana Luisa Rojas Age: 59 yrs Sex: Female : 1965 Arrival Date: 11/21/2024 Time: 20:06 Bed 15 Private MD: CHRISTELLE Physician Jerod Fuentes HPI: 11/21 23:28 This 59 yrs old Female presents to ER via Wheelchair with complaints of Post norris Surgical Bleeding, Post Surgical Pain. 23:28 The patient presents with vaginal bleeding that is light, RIGHT LABIA SITE BLEEDING. norris Onset: The symptoms/episode began/occurred 1 day(s) ago. Modifying factors: The symptoms are alleviated by sitz baths, the symptoms are aggravated by movement, pressure. Associated signs and symptoms: The patient has no apparent associated signs or symptoms. Severity of symptoms: At their worst the symptoms were mild, moderate, in the emergency department the symptoms have improved, moderately. The patient is not sexually active. The patient has experienced similar episodes in the past, a few times. YES, DUE TO SEE SUNDAY. Historical: - Allergies: 21:30 Codeine; iw - PMHx: 21:30 COPD; CHF; Anxiety; diabetes mellitus; depressive disorder; iw - PSHx: 21:30 Appendectomy; Ligation of fallopian tube; Total abdominal hysterectomy; iw - Immunization history:: Adult Immunizations up to date. - Infectious Disease History:: Denies. - Social history:: Smoking status: . ROS: 23:37 Constitutional: Negative for fever, chills, and weight loss, Eyes: Negative for injury, norris pain, redness, and discharge, ENT: Negative for injury, pain, and discharge, Neck: Negative for injury, pain, and swelling, Cardiovascular: Negative for chest pain, palpitations, and edema, Respiratory: Negative for shortness of breath, cough, wheezing, and pleuritic chest pain, Abdomen/GI: Negative for abdominal pain, nausea, vomiting, diarrhea, and constipation, Back: Negative for injury and pain, MS/Extremity: Negative for injury and deformity, Skin: Negative for injury, rash, and discoloration, Neuro: Negative for headache, weakness, numbness, tingling, and seizure, Psych: Negative for depression, anxiety, suicide ideation, homicidal ideation, and hallucinations, Allergy/Immunology: Negative for hives, rash, and allergies, Endocrine: Negative for neck swelling, polydipsia, polyuria, polyphagia, and marked weight changes, Hematologic/Lymphatic: Negative for swollen nodes, abnormal bleeding, and unusual bruising, 23:37 : Positive for of the right labia majora and right labia minora, Exam: 23:37 Constitutional: This is a well developed, well nourished patient who is awake, alert, norris and in no acute distress. Head/Face: Normocephalic, atraumatic. Eyes: Pupils equal round and reactive to light, extra-ocular motions intact. Lids and lashes normal. Conjunctiva and sclera are non-icteric and not injected. Cornea within normal limits. Periorbital areas with no swelling, redness, or edema. ENT: Nares patent. No nasal discharge, no septal abnormalities noted. Tympanic membranes are normal and external auditory canals are clear. Oropharynx with no redness, swelling, or masses, exudates, or evidence of obstruction, uvula midline. Mucous membranes moist. Neck: Trachea midline, no thyromegaly or masses palpated, and no cervical lymphadenopathy. Supple, full range of motion without nuchal rigidity, or vertebral point tenderness. No Meningismus. Chest/axilla: Normal chest wall appearance and motion. Nontender with no deformity. No lesions are appreciated. Cardiovascular: Regular rate and rhythm with a normal S1 and S2. No gallops, murmurs, or rubs. Normal PMI, no JVD. No pulse deficits. Respiratory: Lungs have equal breath sounds bilaterally, clear to auscultation and percussion. No rales, rhonchi or wheezes noted. No increased work of breathing, no retractions or nasal flaring. Abdomen/GI: Soft, non-tender, with normal bowel sounds. No distension or tympany. No guarding or rebound. No evidence of tenderness throughout. Back: No spinal tenderness. No costovertebral tenderness. Full range of motion. Skin: Warm, dry with normal turgor. Normal color with no rashes, no lesions, and no evidence of cellulitis. MS/ Extremity: Pulses equal, no cyanosis. Neurovascular intact. Full, normal range of motion., bilateral aka Neuro: Awake and alert, GCS 15, oriented to person, place, time, and situation. Cranial nerves II-XII grossly intact. Motor strength 5/5 in all extremities. Sensory grossly intact. Cerebellar exam normal. Normal gait. Psych: Awake, alert, with orientation to person, place and time. Behavior, mood, and affect are within normal limits. 23:37 Skin: abscess, not appreciated, cellulitis, that is minimal, induration, is not appreciated, injury, BIOPSY, Vital Signs: 21:29 BP 97 / 71; Pulse 72; Resp 18; Pulse Ox 95% ; Weight 122.47 kg; Height 5 ft. 6 in. ; iw Pain 5/10; 11/22 00:06 BP 110 / 71 LA Supine (auto/reg); Pulse 72; me1 00:06 BP 120 / 79 LA Sitting (auto/reg); Pulse 74; me1 00:06 BP 108 / 84 LA Standing (auto/reg); Pulse 75; me1 11/21 21:29 Body Mass Index 43.58 (122.47 kg, 167.64 cm) 03 21:29 Pain Scale: Adult [place] Coma Score: 11/21 23:37 Eye Response: spontaneous(4). Motor Response: obeys commands(6). Verbal Response: norris oriented(5). Total: 15. MDM: 20:27 Medical Screening Exam initiated norris 23:38 Differential diagnosis: Neoplasm urinary tract infection. Data reviewed: vital signs, [facility] nurses notes, lab test result(s). Consideration of Admission/Observation Escalation of care including admission/observation considered. I considered the following discharge prescriptions or medication management in the emergency department Medications were administered in the Emergency Department. See MAR. Care significantly affected by the following chronic conditions: Diabetes, Congestive Heart Failure, Obesity, ANXIETY. 11/21 20:27 Order name: CBC with Diff; Complete Time: 23:27 [facility] 11/21 20:27 Order name: Comprehensive Metabolic Panel; Complete Time: 23:27 [facility] 11/21 23:44 Order name: Orthostatics; Complete Time: 00:05 [facility] 11/21 23:44 Order name: PO challenge; Complete Time: 23:58 [facility] Administered Medications: 23:29 Drug: NS 0.9% IV 500 ml 500 ml IV at 1 bolus once; to be given as a bolus over 30 me1 minutes Volume: 500 ml; Route: IV; Rate: 1 bolus; Site: right antecubital; 11/22 00:24 Follow up: Response: No adverse reaction; IV Status: Completed infusion cp4 11/21 23:33 Drug: Ciprofloxacin PO 500 mg PO once Route: PO; me1 23:58 Follow up: Response: No adverse reaction me1 23:33 Drug: Trimethoprim-Sulfamethoxazole PO (160 mg-800 mg (DS) 1 tablet PO once Route: PO; me1 23:58 Follow up: Response: No adverse reaction me1 Disposition Summary: 11/21/24 23:42 Discharge Ordered Notes: Location: Home [facility] Problem: new norris Symptoms: have improved norris Condition: Stable norris Diagnosis - Other postprocedural complications of skin and subcutaneous tissue - RIGHT LABIA, norris BIOPSY Followup: norris - With: Private Physician - When: 2 - 3 days - Reason: Recheck today's complaints, Continuance of care, Re-evaluation by your physician Discharge Instructions: - Discharge Summary Sheet [facility] - How to Take a Sitz Bath [facility] - Wound Care, Adult [facility] Forms: - Medication Reconciliation Form [facility] - Antibiotic Education [facility] - Prescription Opioid Use [facility] - Patient Portal Instructions [facility] - Leadership Thank You Letter [facility] Prescriptions: - Cipro 500 mg Oral Tablet - take 1 tablet ORAL route every 12 hours for 7 days; 14 tablet; Refills: 0, [facility] Product Selection Permitted - Bactrim DS 800-160 mg Oral Tablet - take 1 tablet ORAL route every 12 hours for 7 days; 14 tablet; Refills: 0, [facility] Product Selection Permitted Signatures: Dispatcher [employer] Jerod Holcomb MD MD cha Williams, Irene, RN RN Kristal Lockett RN RN nvMildred Ramos [facility]
[2024-11-22 00:36] VITALS: O2SAT 95
[2024-11-22 00:37] VITALS: BP 108/84
== END 2024-11-22 00:25 | disposition home or self-care (01) ==
LOC: ER 20:06
DX: L76.82 Other postprocedural complications of skin and subcutaneous tissue (principal)
CPT/HCPCS: 85025; 36415; 80053; 96360; 99284; J7040

== ENCOUNTER 2024-12-12 09:25 | Day surgery (SDC) | payer OTHER ==
[2024-12-09 11:00] LABS: PT Prothrombin Time 16.5 SECONDS (10-13.0); PTT, Activated Partial Thromb 37.7 SECONDS (27.2-37.4); Protime INR 1.47
--- NOTE | 2024-12-09 12:27 | RAD REPORT ---
EXAMINATION: TWO VIEW CHEST XR CLINICAL INDICATION: Female, 59 years old. [facility] Pre-op pending trigger finger release TECHNIQUE: 2 view radiographs of the chest were performed. COMPARISON: 01/08/2024 FINDINGS: The lungs are well inflated and clear apart from stable bibasilar mild atelectasis. No pneumothorax o r sizable effusion. The heart is normal in size. Mediastinal contours are unremarkable. IMPRESSION: No acute or significant abnormalities.
[2024-12-12] MEDS ORDERED: NA CHLORIDE 0.9% 1,000 ML ONE (09:49)
[2024-12-12] MEDS ORDERED: ONDANSETRON 4 MG/2 ML VIAL ONE (11:48)
[2024-12-12] MEDS ORDERED: KETOROLAC 30 MG/ML INJ ONE (11:48)
[2024-12-12] MEDS ORDERED: LIDOCAINE 1% MPF 5 ML VIAL ONE (11:48)
[2024-12-12] MEDS ORDERED: propofoL 200 MG/20 ML VIAL IV ONE (11:48)
[2024-12-12] MEDS ORDERED: MIDAZOLAM HCL 2 MG/2 ML INJ ONE (11:49)
[2024-12-12] MEDS ORDERED: FENTANYL CITR 100 MCG/2 ML ONE (11:49)
[2024-12-12] MEDS: CEFAZOLIN SODIUM 2 GM/VIAL ONE (12:25)
[2024-12-12] MEDS: BUPIVACAINE 0.25% PF 10 ML VIAL ONE (12:32)
--- NOTE | 2024-12-12 12:54 | P.BOP ---
Preoperative diagnosis: right middle finger trigger finger Postoperative diagnosis: Same Primary procedure: Right middle finger A1 francisco release [employer] Rep[employer]r: General Estimated blood loss: 2 cc Specimen: None Findings: See dictation Anesthesia: General Complications: None Implants: None Fluids & blood products: Per anesthesia record Transferred to: Recovery Room Condition: Good
--- NOTE | 2024-12-12 12:56 | P.OP ---
Preoperative diagnosis: Right middle finger trigger digit Postoperative diagnosis: Same Primary procedure: Right middle finger A1 francisco release Anesthesia: General Estimated blood loss: 2 cc Specimen: None Findings: See dictation Operative Technique: Reason for Surgery: Ana Luisa Velasquez is a 59 yo female that presented with physical exam findings consistent with right middle finger trigger digit. Patient failed conservative treatment measures including corticosteroid injection. I discussed with the patient at length risks and benefits associated with the procedure. She expressed understanding and elected proceed with operative treatment. Description of Procedure: After informed consent was obtained the patient was identified in the preoperative holding area. The right middle and ring fingers were marked. Patient then brought back to the operating room transferred the operative table in supine fashion and placed under anesthesia. The right upper extremity was exsanguinated and the tourniquet was inflated to 250 mmHg. Approximately a 2 cm longitudinal incision over the middle finger A1 francisco. Dissection was then taken down to the A1 francisco using Ragnell retractors. The tendon sheath was identified. It was split in line with the incision. There was significant tenosynovial fluid that was expressed after opening the tendon sheath. The tendon was then brought out through the incision using a Ragnell retractor. There was full excursion of the tendon without triggering noted. The wound was then irrigated thoroughly with normal saline and skin was approximated using a 5-0 Prolene. Sterile dressings were applied and patient was awakened and transferred to PACU in stable condition. Postoperative plan: The patient will follow-up in 1 to 2 weeks for wound check and suture removal. She may begin to work on range of motion exercises at this time. Complications: None Implants: None Fluids & blood products: Per anesthesia record Transferred to: Recovery Room Condition: Good
[2024-12-12 13:18] VITALS: TEMP 97
[2024-12-12] MEDS: TRAMADOL HCL 50 MG TAB ONE (13:38)
[2024-12-12 14:46] VITALS: BP 93/60; O2SAT 95
== END 2024-12-12 14:05 | disposition home or self-care (01) ==
LOC: OR 09:25
PROVIDERS: ATTEND Orthopaedic Surgery Sports Medicine
PROC: 0LN70ZZ Release Right Hand Tendon, Open Approach (ICD-10-PCS; principal; 2024-12-12 11:00)
DX: M65.331 Trigger finger, right middle finger (principal)
CPT/HCPCS: 36415; 85610; 82947 ×2; 85730; 71046; 26055; J2704; J2003; J2250; J3010; J2405; J7030

== ENCOUNTER 2025-06-25 11:20 | Day surgery (SDC) | payer OTHER ==
[2025-06-22 13:49] LABS: Absolute Lymphocytes (CBC) 1.7 K/uL (0.7-4.9); Hematocrit 38.7 % (36.0-45.0); Hemoglobin 12.9 g/dL (12.0-15.0); MCH 27.2 pg (27.0-35.0); MCHC 33.4 g/dL (32.0-36.0); MCV 81.5 fL (80-100); MPV 8.6 fL (7.6-11.3); Nucleated RBC Absolute Count 0.0 (0-0); Nucleated Red Blood Cells % 0.0 % (0-0); RBC Red Blood Cell Count 4.75 M/uL (3.86-4.86); White Blood Count 8.40 thou/uL (4.3-10.9)
[2025-06-22 13:58] LABS: PT Prothrombin Time 18.5 SECONDS (10-13.0); PTT, Activated Partial Thromb 36.5 SECONDS (27.2-37.4); Protime INR 1.66
[2025-06-22 14:03] LABS: Anion Gap 7.8 mEq/L (5.0-15.0); BUN Blood Urea Nitrogen 27.0 mg/dL (7-18); Glucose Level 121.0 mg/dL (74-106); Potassium 3.8 mEq/L (3.5-5.1)
[2025-06-25] MEDS ORDERED: NA CHLORIDE 0.9% 1,000 ML ONE (12:16)
[2025-06-25] MEDS ORDERED: CEFAZOLIN SODIUM 1 GM/VIAL ONE (12:16)
[2025-06-25] MEDS ORDERED: MIDAZOLAM HCL 2 MG/2 ML INJ ONE (13:25)
[2025-06-25] MEDS ORDERED: FENTANYL CITR 250 MCG/5 ML ONE (13:25)
[2025-06-25] MEDS ORDERED: FENTANYL CITR 100 MCG/2 ML ONE (13:25)
[2025-06-25] MEDS ORDERED: LIDOCAINE 1% MPF 5 ML VIAL ONE (13:26)
[2025-06-25] MEDS ORDERED: SUCCINYLCHOLINE 200 MG/10 ML 200 MG/10 ML SYR IV ONE (13:26)
[2025-06-25] MEDS: CEFAZOLIN SODIUM 2 GM/VIAL ONE (14:05)
[2025-06-25] MEDS ORDERED: ONDANSETRON 4 MG/2 ML VIAL ONE (14:20)
[2025-06-25] MEDS ORDERED: EPHEDRINE SULF 50 MG/ML VIAL ONE (14:26)
[2025-06-25] MEDS ORDERED: GLYCOPYRROLATE 0.2 MG/ML SYR ONE (14:26)
[2025-06-25] MEDS: LIDOCAINE HCL/EPINEPHRINE 20 ML MDV ONE (14:31)
[2025-06-25] MEDS ORDERED: Mastisol Adhesive Liq ONE (15:01)
[2025-06-25] MEDS: HYDROMORPHONE HCL 0.5 MG/0.5 ML INJ ONE (16:09)
[2025-06-25] MEDS: HYDROCODONE/APAP 7.5/325 MG TAB ONE (17:05)
[2025-06-25 17:27] VITALS: BP 105/70; TEMP 97; O2SAT 96
--- NOTE | 2025-06-25 17:29 | RAD REPORT ---
EXAM: Fluoroscopy use, Fluoroscopy <1 Hour HISTORY: SACRAL NEURO MOD 1 2 COMPARISON: None FINDINGS: Multiple images were sent to PACS, during a fluoroscopically guided procedure. No radiologi st was involved in protocoling or performance of the study, and no radiologist was present for the duration of the procedure. No interpretation of the saved images will be provided. Total fluoroscopy time: 1.2 minuets. IMPRESSION: Documentation of fluoroscopy use as above. Transcribed Date/Time: 06/25/2025 5:29 PM
--- NOTE | 2025-06-26 02:51 | OP ---
Date of Procedure: 06/25/2025 Surgeon: Susie Flores MD Preoperative Diagnosis: Urge urinary incontinence. The patient with history of bladder cancer under good control at this time with Dr. Castillo, status post mid urethral sling for stress incontinence b y me. Postoperative Diagnosis: Urge urinary incontinence. Procedure Performed: Stage I and II InterStim (complete InterStim system implantation with incision and implantation of the tined quadripolar lead electrodes into the S3 foramen with fluoroscopic mamta nce for needle placement, subcutaneous implantation of sacral nerve neurostimulator and electronic an alysis and programming involving the parameters). Anesthesia: General endotracheal. Estimated Blood Loss: Minimal. Specimens: None. Complications: None. Drains: None. Implants: S3 lead on the left side and left buttock implant with a neuromodulator. There was an exc ellent response of toe and Eric on leads 1, 2, and 3 with a positive toe on lead 0 with no Eric noted on the same lead. The positioning appeared to be ideal both in AP and lateral views. The patient's condition stable. Again, EBL less than 25. The patient has a history of bladder cancer under control, presented with m ixed urinary incontinence, evaluated by urodynamics and cystoscopy. The sling was placed, but still the patient continues to have urge incontinence despite adequate bladder treatment for bladder cancer and stress incontinence treatment and resolution of it. So, we discussed about the third line thera pies for the urge incontinence management and discussed both Botox and . She has consented for an office PNE and only 1-lead could be placed on the left side. It was extremely successful for the patient and was then consented for a full system implantation. She was re-consented in the preoperative area. Diabetes well controlled. Antibiotics 3 g were given . Bactrim DS p.o. b.i.d. for 10 days was sent to the pharmacy. Taken back to OR, placed in a supine fashion on the bed. After being intubated, she was placed in a prone position by the OR protocol. The pillows were placed under her lower abdomen to flatten the sa juanpablo and under the shins to allow the toes to dangle freely. The patient was then prepped and draped in the usual fashion. The C-arm was draped and moved into position. All the anatomical hawkins were imaged in both AP and lateral positions. After the surface markings were made according to the usual guidelines for placement, 1% lidocaine wi th epinephrine was injected 10 mL on the skin and then 10 mL in the presacral space on the left side. Then, the firm needle was then taken and introduced at the 11 cm delonte and the S4 foramen was entere d after being went up 2 cm to 13 and had to go slightly more lateral than [address] carrillon midline difficult to have the surface markings for this patient due to the difficulty in identifi cation of the midline. Once fluoroscopy was used to find the lateral margins of the sacrum, then the needle was used to pene trate the S3 foramen. On the first entry, there was no response, so, repeat entry was made slightly more parallel and staying on the top of the foramen, there was an excellent response of the Eric a nd toes. So, once the position was confirmed fluoroscopically, the proper needle position, identific ation of Eric and toes was also confirmed. Then, the external test stimulator and then the stylet was removed. Bidirectional guide was placed and confirmed fluoroscopically. The foramen needle was removed. Incision was made on the skin then the lead introducer sheath and dilator were placed afte r soaking in water for lubrication. Over the directional guide and entered into the foramen to ensur e radiopaque marker, the lead introducer did not extend beyond the anterior edge of the sacrum. The dilator was unlocked, removed along with the directional guide. The lead was then placed through the introducer sheath to the first white line. Positioning was checked fluoroscopically. The lead was then further introduced until 3 electrodes were visible below the sacrum. Each electrode was then te sted for visualization of Eric and plantar flexion of the great toe and after satisfactory positio n was confirmed, the introducer sheath was retracted under fluoro, deploying the tines into the nicole acral tissue. Further incision was made in a subcutaneous tissues posterior to the iliac crest lateral to the sacru m after injecting local 10 mL of 1% lidocaine with epi. On the skin, 15 blade was used to make the i ncision, dissection down with Bovie on the gluteal fascia. Once gluteal fascia was identified, the p ocket was made adequately with the Bovie. After securing hemostasis and meticulous fashion, then the tunneling tool with a straw was placed from the lead exit site towards the incised pocket site and t unneling tool removed. The lead was fed through the straw, pulled out of the pocket site. Lead was then cleansed of bodily fluids and dried which was then inserted into the neurostimulator header. Th e metal bands were aligned. Blue tip is visible clearly in the distal portion of the header and the set screw was tightened with a hex wrench. Neurostimulator was then placed in the subcutaneous pocket with the etched side facing down was actua lly and the lead wrapped naturally in this direction. The programming head was then placed over the neurostimulator and under sterile cover, until adequate lead connection and parameters were within no rmal limits and impedances confirmed with me within normal limits. Then, the wounds were irrigated w ith antibiotic solution and closed with 3-0 Vicryl interrupted sutures and 4-0 Monocryl continuous ru nning subcuticular sutures, the same suture for the lead introducer site. Counts were correct. Ster i-Strips and 4 x 4's were placed over the incision. EBL was less than 10. The patient was transferr ed to the recovery room in stable condition and a etl programmer used for programming and the generator w as programmed on the end and the settings entered into the chart. She will be discharged today and f trey up in 3 weeks. MAR/FABRICIO Voice ID: [id number] Report ID: [id number]
== END 2025-06-25 17:16 | disposition home or self-care (01) ==
LOC: OR 11:20
PROVIDERS: ATTEND Obstetrics & Gynecology
PROC: 0JH73BZ Insertion of Single Array Stimulator Generator into Back Subcutaneous Tissue and Fascia, Percutaneous Approach (ICD-10-PCS; 2025-06-25)
PROC: 01HY3MZ Insertion of Neurostimulator Lead into Peripheral Nerve, Percutaneous Approach (ICD-10-PCS; principal; 2025-06-25 12:30)
DX: N39.41 Urge incontinence (principal); Z85.51 Personal history of malignant neoplasm of bladder
CPT/HCPCS: 36415; 76000; 80048; 82947; 85025; 85610; 85730; C1767; C1778; J0330; J0690; J1171; J2003; J2250; J2405; J2704; J3010; J7030

== ENCOUNTER 2025-07-02 08:22 | Day surgery (SDC) | payer OTHER ==
[2025-07-02] MEDS: NA CHLORIDE 0.9% 1,000 ML ONE (08:50)
[2025-07-02] MEDS ORDERED: EPINEPHRINE 1 MG/ML VIAL ONE (08:56)
[2025-07-02] MEDS ORDERED: FENTANYL CITR 100 MCG/2 ML ONE (09:00)
[2025-07-02] MEDS ORDERED: MIDAZOLAM HCL 2 MG/2 ML INJ ONE (09:00)
[2025-07-02] MEDS ORDERED: LIDOCAINE 1% MPF 5 ML VIAL ONE (09:02)
[2025-07-02] MEDS ORDERED: GLYCOPYRROLATE 0.2 MG/ML SYR ONE ×3 (09:02→10:25)
[2025-07-02] MEDS ORDERED: SUCCINYLCHOLINE 200 MG/10 ML 200 MG/10 ML SYR IV ONE (09:03)
[2025-07-02] MEDS ORDERED: DEXMEDETOMIDINE HCL 200 MCG/2 ML VIAL ONE (09:16)
[2025-07-02] MEDS ORDERED: NS 0.9% VIAL 10 ML ONE (09:23)
[2025-07-02] MEDS ORDERED: ROCURONIUM 50 MG/5 ML VIAL IV ONE (09:41)
[2025-07-02] MEDS: OXYMETAZOLINE HCL 0.05% 30ML NAS ONE (10:04)
[2025-07-02] MEDS ORDERED: ONDANSETRON 4 MG/2 ML VIAL ONE (10:04)
[2025-07-02] MEDS ORDERED: ALBUTEROL 2.5 MG/3 ML NEB SOL ONE (10:42)
[2025-07-02] MEDS: ACETAMINOPHEN 325 MG TABLET ONE (11:34)
[2025-07-02 12:31] VITALS: BP 103/58; TEMP 97.8; O2SAT 98
--- NOTE | 2025-07-02 20:59 | OP ---
Surgeon: Esther Ortega Preoperative Diagnoses: 1. Neoplasm, uncertain behavior, larynx. 2. Neoplasm, uncertain behavior, posterior one-third of tongue. 3. Chronic tobacco use disorder. Postoperative Diagnoses: 1. Neoplasm, uncertain behavior, larynx. 2. Neoplasm, uncertain behavior, posterior one-third of tongue. 3. Chronic tobacco use disorder. Procedures: 1. Microsuspension direct laryngoscopy with biopsies of larynx. 2. Biopsies of the base of tongue. Anesthesia: General endotracheal anesthesia was administered. I used Afrin-soaked nasal pledgets fo r nasal constriction and hemostasis. Specimens: Obtained from bilateral vocal cords and base of tongue, submitted to Pathology for perman ent section. 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 Complications: None. Disposition: Stable. The patient tolerated the procedure well. Indications For Procedure: The patient is a pleasant 59-year-old female with a chronic longstanding history of tobacco use, currently undergoing treatment for bladder cancer, presented to outpatient [facility] with worsening voice and right ear pain. Examination revealed suspected neoplasms involving bas e of tongue and bilateral vocal cords, which can cause referred ear pain. These were indications to bring the patient to operative suite for the above-mentioned procedure. She understood. All questi ons were answered. Risks versus benefits and complications were explained in detail. Consent form w as signed, was placed in the chart. Description Of Procedure: The patient was transferred from the preoperative holding area to the oper ative suite by Department of Anesthesia, placed on the operating room table supine, sedated, and intu bated in normal fashion. Table was rotated to 90 degrees. The patient's head was slightly extended and a bite guard was placed over the upper gingiva for protection. A rigid laryngoscope was introduc ed into the right oral commissure and directed along the endotracheal tube and suspended from the May o stand. Bilateral vocal cord biopsies were taken with a small cup forceps and handed off the field in formalin. Hemostasis was achieved with Afrin soaked pledgets. I then de-suspended the patient an d withdrew the scope throughout the hypopharynx and rest of larynx and epiglottis. I did not see any other mucosal lesions. I then withdrew to the level of the vallecula and base of tongue and the pat ient had significant inflammation of the base of tongue and possibly of suspected neoplasm involving base of tongue. Multiple biopsies were taken and handed off the field and placed in formalin. Hemos tasis was achieved with Afrin-soaked nasal pledgets. The scope was then withdrawn to the dorsal tong ue and tonsil area and I did not detect any abnormal neoplasm. Scope was completely removed and a bi manual palpation exam was performed and I did not palpate any abnormalities in the floor of mouth, or al tongue, buccal mucosa, or vestibular mucosa. Bilateral neck was palpated. I did not detect any l ymphadenopathy. The patient was then transferred back to Department of Anesthesia in stable conditio n, subsequently awakened, extubated, and transferred to postoperative care unit and discharged home o n analgesic medication. She will follow up in 1-2 weeks or sooner if needed. LESLYE/FABRICIO Voice ID: [id number] Report ID: [id number]
== END 2025-07-02 12:13 | disposition home or self-care (01) ==
LOC: OR 08:22
PROVIDERS: ATTEND Otolaryngology Facial Plastic Surgery
PROC: 0CB70ZX Excision of Tongue, Open Approach, Diagnostic (ICD-10-PCS; 2025-07-02)
PROC: 0CBS8ZX Excision of Larynx, Via Natural or Artificial Opening Endoscopic, Diagnostic (ICD-10-PCS; principal; 2025-07-02 09:30)
DX: D38.0 Neoplasm of uncertain behavior of larynx (principal)
CPT/HCPCS: 31535; 41105; 82947 ×2; 88305; A4216; J2704; J1100; J2003; J2405; J0330; J7030; J0169; J2250; J3010; J7613